=== PATIENT | female | born 1980 | race Caucasian/White ===

== ENCOUNTER 2016-07-05 14:32 | Outpatient (CLI) | payer MEDICARE, OTHER, MEDICAID ==
[~2016-07-05] VITALS: Ht 172.7 cm; Wt 103.6 kg
[~2016-07-05 14:32] MED LIST: ALBU17AE23 IH; ALBU2SYR; ALBU8.5H2 IH; AZTH250C PO; BIRTH CONTROL; BUDEPRION XL; CARB200T6 PO; CLAR-19 PO; CLNZ.5T; CLNZ.5T PO; CLON0.5T3; CLON1TAB2 PO; CRB200T; CYCL10TA9 PO; DCCL10CRX; DEPO SHOT; DICY10CA12; DOXY100C2 PO; GABA800T2; GABA800T9; GBPN400C; HYDR-3583 PO; IBP800T; KETO200T PO; LANS30CA PO; LORA10TA2; METH4TAB PO; NF-CARB200; OMEP-10 PO; ONDA-42 PO; PRCD5U PO; QTP25T PO; SEASONALE; SULF-222 PO; SULF1TAB35 PO; SULF1TAB38 PO; TRAM50TA2 PO; TRM50T; ZLP10T PO
[2016-07-05 14:50] VITALS: BP 125/79
[2016-07-05] MEDS ORDERED: MELO7.5T46 PO (15:23)
[2016-07-05] MEDS ORDERED: CARB200T6 PO (15:23)
[2016-07-05] MEDS ORDERED: MEDR150V IM (15:23)
[2016-07-05] MEDS ORDERED: ESCI10TA55 PO (15:23)
[2016-07-05] MEDS ORDERED: HYDR-3812 PO (15:23)
[2016-07-05] MEDS ORDERED: HYDR50TA76 PO (15:23)
[2016-07-05] MEDS ORDERED: TOPI100T PO (15:23)
[2016-07-05] MEDS ORDERED: MIRT30TA6 PO (15:23)
[2016-07-05] MEDS ORDERED: RANI150T90 PO (15:23)
== END 2016-07-05 15:33 | disposition home or self-care (01) ==
LOC: PREOP 14:32
PROVIDERS: ATTEND Orthopaedic Surgery
DX: Z01.818 Encounter for other preprocedural examination (principal); Z11.2 Encounter for screening for other bacterial diseases; M94.261 Chondromalacia, right knee
CPT/HCPCS: 87081

== ENCOUNTER 2016-07-12 08:48 | Day surgery (SDC) | payer MEDICARE, OTHER, MEDICAID ==
[~2016-07-12] VITALS: Ht 172.7 cm; Wt 103.6 kg
[2016-07-12 08:45] VITALS: BP 110/80
[~2016-07-12 08:48] MED LIST changes: +ESCI10TA55 PO; +HYDR-3812 PO; +HYDR50TA76 PO; +MEDR150V IM; +MELO7.5T46 PO; +MIRT30TA6 PO; +RANI150T90 PO; +TOPI100T PO
[2016-07-12] MEDS ORDERED: LACTATED RINGERS 1,000 ML IV PRN (09:05)
--- NOTE | 2016-07-12 09:12 | Progress Note-Pre Operative ---
Pre-Operative Progress Note H&P Reviewed The H&P was reviewed, patient examined and no changes noted. Date H&P Reviewed: Jul 12, 2016 Time H&P Reviewed: 09:12 Pre-Operative Diagnosis: right knee chondromalacia of the patella PONCE SANDY MD Jul 12, 2016 09:12
--- NOTE | 2016-07-12 09:14 | Progress Note-Post Operative ---
Post-Operative Progess Note Surgeon (s)/Bus Washer (s) Surgeon PONCE SANDY MD Bus Washer: Mars Genao Pre-Operative Diagnosis right knee chondromalacia of the patella Post-Operative Diagnosis right knee chondromalacia of the patella and lateral tibial plateau and partial medial meniscectomy Post-Op Procedure Note Date of Procedure: Jul 12, 2016 Name of Procedure Performed: right knee arthroscopic chondroplasty of the patella and the lateral tibial plateau and partial medial meniscectomy Description of the Procedure: see operative note Findings of the Procedure see operative note Anesthesia Type GETA Estimated blood loss (mL): minimal Packing: none Specimen(s) collected/removed none PONCE SANDY MD Jul 12, 2016 09:14
[2016-07-12] MEDS ORDERED: CLINDAMYCIN 600 MG/50 ML IVPB 50 ML IV ONE (09:15)
[2016-07-12] MEDS ORDERED: MIDAZOLAM 2 MG/2 ML (VERSED) VIAL IV ONE (09:15)
[2016-07-12] MEDS ORDERED: HYDROcodone/APAP 7.5 MG/325 MG (LORTAB, LORCET PLUS) TABLET PO PRN (09:30)
[2016-07-12] MEDS ORDERED: morphine PF (DURAMORPH) 10 MG/10 ML AMP ONE (09:35)
[2016-07-12] MEDS ORDERED: BUPIVACAINE 0.25% 30 ML (SENSORCAINE) VIAL ONE (09:35)
[2016-07-12] MEDS ORDERED: LIDOCAINE PF 2% 10 ML (XYLOCAINE) AMP ONE (09:54)
[2016-07-12] MEDS ORDERED: proPOfol 200 MG/20 ML (DIPRIVAN) VIAL IV ONE (09:54)
[2016-07-12] MEDS ORDERED: LACTATED RINGERS 1,000 ML IV ONE (09:54)
[2016-07-12] MEDS ORDERED: ONDANSETRON 4 MG/2 ML (SDV) Z0FRAN ONE (09:54)
[2016-07-12] MEDS ORDERED: fentaNYL INJECTION 100 MCG/2 ML AMP ONE ×2 (09:55→11:18)
[2016-07-12] MEDS ORDERED: MIDAZOLAM 2 MG/2 ML (VERSED) VIAL ONE (09:55)
[2016-07-12] MEDS ORDERED: SEVOFLURANE (ULTANE) 15 ML INHAL SOLN ONE ×3 (09:56→11:20)
[2016-07-12] MEDS ORDERED: ONDANSETRON 4 MG/2 ML (SDV) Z0FRAN IVP PRN (11:30)
[2016-07-12] MEDS ORDERED: MEPERIDINE (DEMEROL) INJ 50 MG/ML IVP PRN (11:30)
[2016-07-12] MEDS: morphine INJ 10 MG/ML 1ML (SYR OR VIAL) IVP PRN ×2 (11:50→11:55)
[2016-07-12 12:25] VITALS: BP 105/79
[2016-07-12 12:55] VITALS: BP 106/63
[2016-07-12 13:25] VITALS: BP 120/93
--- NOTE | 2016-07-12 13:29 | Physical Therapy Ortho Eval ---
PT Orthopedic Evaluation Type of Surgery Knee Scope right knee Prior Level of Function Current Living Status: Alone Subjective Subjective Patient in bed pre tx, agrees to PT, states she has 6/10 pain in her right knee. Patient very apprehensive and nervous about participating in PT, she states because she has a lot of pain. Entry Into Home: Level Entry Objective Objective Right knee flexion 80 degrees, extension +3 degrees. Motor Control Motor Control: Motor Control WNL ROM see above Strength NT due to recent surgery Transfer Transfers (B, C, W/C) (FIM): 4 (CGA) Gait Gait Assistive Device: Crutches 3 point gait pattern, CGA Weight Bearing Restriction: Weight Bearing/Tolerated Location Restriction: R LE Gait (FIM): 1 Distance: 40' Gait Level of Assist: 4 Summary/Comments Patient declined going up and down a step. Treatment Rendered Treatment: Therapeutic Exercises, Gait Train Exercise Instruction: Quad Sets, Heel Slides, Ankle Pumps Assessment/Goals Goal Time Frame: 1 Visit Plan Treatment Plan: Discharge PT/Family Agrees to Plan: Yes Time Time In: 1300 Time Out: 1315 Total Billed Treatment Time: 15 Billed Treatment Time 1 visit EVL 15 min Yes PT/OT Therapy GCodes Therapy Functional Limitation: Physical Therapy Test(s)/Tool used to determine: Level of Assistance Scale Functional Limitation-Current Charge Code: MOBCUR Modifier: CI Functional Limitation-Goal Charge Code: MOBGOAL Modifier: CI Functional Limitation-D/C Charge Codes: MOBDC Modifier: CI FARNAZ MARTÍNEZ PT Jul 12, 2016 13:29
[2016-07-12] MEDS ORDERED: HYDR-3816 PO ×2 (13:30→13:32)
[2016-07-12 13:50] VITALS: BP 120/93
--- NOTE | 2016-07-12 14:49 | OPERATIVE REPORT ---
PROCEDURE PHYSICIAN: PONCE SANDY DATE OF PROCEDURE: 07/12/2016 PREOPERATIVE DIAGNOSIS: Right knee chondromalacia of the patella. POSTOPERATIVE DIAGNOSIS: 1. Right knee chondromalacia of the patella. 2. Right knee chondromalacia of the lateral tibial plateau. 3. Right knee medial meniscal tear. PROCEDURE: 1. Right knee arthroscopic chondroplasty of the patella. 2. Right knee arthroscopic chondroplasty of the lateral tibial plateau. 3. Right knee arthroscopic partial medial meniscectomy. SURGEON: Danilo CENTER LINE CUTTER OPERATOR: Mars Genao who assisted throughout the procedure and closed the incisions. ANESTHESIA: General endotracheal. TOURNIQUET TIME: Was not applicable. ESTIMATED BLOOD LOSS: Minimal. DRAINS: None. COMPLICATIONS: None. POSTOPERATIVE PLAN: Routine arthroscopy protocol. The patient was transported to the recovery room, awake, in stable condition. STATEMENT OF MEDICAL NECESSITY: The patient is a 35-year-old female who had previously sustained a right patella fracture, which underwent internal fixation. She reported progressively worsening right anterior knee pain, catching, locking and swelling. She had patellofemoral crepitus. It is felt that she likely had progressive chondromalacia of the patella and due to functional impairment and failure to improve with conservative measures, the patient elected to proceed with surgical intervention. Examination under anesthesia revealed range of motion of 0/0/140, with negative Ciarra. Negative anterior posterior drawer. No varus valgus laxity and a negative pivot shift. Arthroscopic findings demonstrated diffuse grade 2 chondral flaps over the central portion of the patella in a 20 x 20 area. The trochlea demonstrated no gross chondral abnormalities. The medial and lateral gutters were clear. The lateral compartment are grade 2 chondral flap centrally over tibial plateau in a 5 x 5 area. No meniscal pathology was noted. The ACL and PCL were intact. The medial compartment demonstrated a flap tear of the anterior horn of the medial meniscus involving approximately 20% of the anterior horn. No chondral pathology was noted. PROCEDURE: After risks and benefits of procedure were discussed and questions were answered an informed consent was signed and placed on chart. The operative site was confirmed in the preoperative holding and initialed by the surgeon. The patient was then transported to the operating room and after adequate levels of general endotracheal anesthetic were obtained, a timeout was called confirming the operative site. Examination under anesthesia was performed with the above findings noted. The right lower extremity was prepped and draped in the usual sterile fashion. The knee joint was injected 60 mL of fluid and a standard inferolateral portal was placed. Under direct visualization an inferior medial port was created. The menisci cruciates were carefully probed with the above findings noted. The unstable chondral flaps on the patella were debrided with a shaver back to a stable edge. The scope was redirected into the lateral compartment where the unstable chondral flaps and tibial plateau were debrided with shaved back to a stable edge. The scope was redirected into the medial compartment where the anterior horn of the medial meniscus was debrided with a shaver, removing approximately 20% of the anterior horn. This was carefully probed with no further tearing or instability noted. The knee was copiously irrigated. Port sites closed with 3-0 nylon in simple interrupted fashion. The knee was injected with Duramorph. Port sites were infiltrated with plain Marcaine. A soft dressing was applied and the patient was then transported to the recovery room, awake, in stable condition. Job ID: [id number] Dictated Date: 07/12/2016 11:35:20 Beauty Culturist Apprentice Date: 07/12/2016 14:40:44 / alejandra
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
--- OUTSIDE RECORDS SUMMARY | 2016-08-13 16:40 | XMS REPORT ---
Author Author CAROLYN MADDOX [facility] eClinicalWorks Address Unknown Phone Unavailable Care Team Providers Care Group Fitness Instructor Name Role Phone CAROLYN MADDOX CP Unavailable [...] at health care facility V70.0 Active Medications No Known Medications Results No Known Results Summary Purpose eClinicalWorks Submission
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
--- OUTSIDE RECORDS SUMMARY | 2016-08-13 16:40 | XMS REPORT ---
Author Author CAROLYN MADDOX Organization eClinicalWorks Address Unknown Phone Unavailable Care Team Providers Care Translator Name Role Phone CAROLYN MADDOX CP Unavailable [...] Date End Date Status Dosage Clonazepam NDC [address]-75 0.5 MG 1 TAB orally 4 times [...]
--- OUTSIDE RECORDS SUMMARY | 2016-08-13 16:40 | XMS REPORT | Continuity of Care Document ---
Author Author Formerly [facility] Address Unknown Phone Unavailable Allergies Active Description Code Type Severity Reaction Onset Reported/Identified Relationship to Patient Clinical Status Yes Cipro Drug Allergy N/A N/A 08/20/2008 Yes Penicillins Drug Allergy N/A N/A 08/20/2008 Yes Cipro Drug Allergy 08/20/2008 Yes Penicillins Drug Allergy 08/20/2008 Yes Lamictal Drug Allergy N/A N/A 03/28/2011 Yes Lamictal Drug Allergy 03/28/2011 Yes ciprofloxacin [id number] Drug Allergy Mild N/A 07/05/2016 Yes Penicillins [id number] Drug Allergy Mild N/A 07/05/2016 Medications Problems Date Dx Coded Attending Type Code Diagnosis Diagnosed By 10/23/2007 ERIN ARAGON DO 293.83 OR ORG ANX SYN 10/23/2007 ERIN ARAGON DO F 293.84 OR ORG ANX SYN 10/23/2007 ERIN ARAGON DO 293.83 OR ORG ANX SYN 10/23/2007 ERIN ARAGON DO 293.84 OR ORG ANX SYN 10/23/2007 ERIN ARAGON DO F 293.83 OR ORG ANX SYN 10/23/2007 ERIN ARAGON DO 293.84 OR ORG ANX SYN 10/23/2007 ERIN ARAGON DO 293.83 OR ORG ANX SYN 10/23/2007 ERIN ARAGON DO 293.84 OR ORG ANX SYN 10/23/2007 VARSHA CAFETERIA FOOD SERVER, CAROLYN S 293.83 OR ORG ANX SYN 10/23/2007 VARSHA CAFETERIA FOOD SERVER, CAROLYN S 293.84 OR ORG ANX SYN 10/23/2007 VARSHA CAFETERIA FOOD SERVER, CAROLYN S 293.83 OR ORG ANX SYN 10/23/2007 VARSHA CAFETERIA FOOD SERVER, CAROLYN S 293.84 OR ORG ANX SYN 10/23/2007 293.83 OR ORG ANX SYN 10/23/2007 293.84 OR ORG ANX SYN 10/23/2007 293.83 OR ORG ANX SYN 10/23/2007 293.84 OR ORG ANX SYN 10/23/2007 ASHER MADDOX APRNNDA S 293.83 OR ORG ANX SYN 10/23/2007 VARSHA KELLY, CAROLYN S 293.84 OR ORG ANX SYN 10/23/2007 WERDER DO, ERIN F 293.83 OR ORG ANX SYN 10/23/2007 WERDER DO, ERIN F 293.84 OR ORG ANX SYN 10/23/2007 JARRET RIVERA PSYD ANN L 293.83 OR ORG ANX SYN 10/23/2007 NICOLE HUI CHIDI L 293.84 OR ORG ANX SYN 10/23/2007 JARRET RIVERA PSYD ANN L 293.83 OR ORG ANX SYN 10/23/2007 JARRET RIVERA PSYD ANN L 293.84 OR ORG ANX SYN 10/23/2007 ASHER MADDOX APRNNDA S 293.83 OR ORG ANX SYN 10/23/2007 ASHER MADDOX APRNNDA S 293.84 OR ORG ANX SYN 10/23/2007 VENEGAS DO, SAUL K 293.83 OR ORG ANX SYN 10/23/2007 VENEGAS DO, SAUL K 293.84 OR ORG ANX SYN 10/23/2007 JARRET RIVERA PSYD ANN L 293.83 OR ORG ANX SYN 10/23/2007 JARRET RIVERA PSYD ANN L 293.84 OR ORG ANX SYN 10/23/2007 JARRET RIVERA PSYD ANN L 293.83 OR ORG ANX SYN 10/23/2007 JARRET RIVERA PSYD ANN L 293.84 OR ORG ANX SYN 10/23/2007 VENEGAS DO, SAUL K 293.83 OR ORG ANX SYN 10/23/2007 VENEGAS DO, SAUL K 293.84 OR ORG ANX SYN 10/23/2007 DELORES CHAVEZ MD 293.83 OR ORG ANX SYN 10/23/2007 DELORES CHAVEZ MD 293.84 OR ORG ANX SYN 10/23/2007 JARRET RIVERA PSYD ANN L 293.83 OR ORG ANX SYN 10/23/2007 JARRET RIVERA PSYD ANN L 293.84 OR ORG ANX SYN 10/23/2007 JARRET RIVERA PSYD ANN L 293.83 OR ORG ANX SYN 10/23/2007 LOPEZEARY KORINA, CHIDI L 293.84 OR ORG ANX SYN 10/23/2007 MCCTANYAEARY PSYD, CHIDI L 293.83 OR ORG ANX SYN 10/23/2007 MCCLEEARY PSYD, CHIDI L 293.84 OR ORG ANX SYN 10/23/2007 MCCLEEARY PSYD, CHIDI L 293.83 OR ORG ANX SYN 10/23/2007 MCCLEEARY PSYD, CHIDI L 293.84 OR ORG ANX SYN 10/23/2007 MCCLEEARY PSYD, CHIDI L 293.83 OR ORG ANX SYN 10/23/2007 MCCLEEARY MANJULAYD, CHIDI L 293.84 OR ORG ANX SYN 11/20/2007 ERIN ARAGON DO 296.32 MAJOR DEPRESSIVE AFFECTIVE DISORDER RECURRENT EPISODE MODERATE DEGREE 11/20/2007 ERIN ARAGON DO 296.32 MAJOR DEPRESSIVE AFFECTIVE DISORDER RECURRENT EPISODE MODERATE DEGREE 11/20/2007 ERIN ARAGON DO F 296.32 MAJOR DEPRESSIVE AFFECTIVE DISORDER RECURRENT EPISODE MODERATE DEGREE 11/20/2007 ERIN ARAGON DO 296.32 MAJOR DEPRESSIVE AFFECTIVE DISORDER RECURRENT EPISODE MODERATE DEGREE 11/20/2007 CAROLYN MADDOX APRN S 296.32 MAJOR DEPRESSIVE AFFECTIVE DISORDER RECURRENT EPISODE MODERATE DEGREE 11/20/2007 CAROLYN MADDOX APRN S 296.32 MAJOR DEPRESSIVE AFFECTIVE DISORDER RECURRENT EPISODE MODERATE DEGREE 11/20/2007 296.32 MAJOR DEPRESSIVE AFFECTIVE DISORDER RECURRENT EPISODE MODERATE DEGREE 11/20/2007 296.32 MAJOR DEPRESSIVE AFFECTIVE DISORDER RECURRENT EPISODE MODERATE DEGREE 11/20/2007 CAROLYN MADDOX APRN S 296.32 MAJOR DEPRESSIVE AFFECTIVE DISORDER RECURRENT EPISODE MODERATE DEGREE 11/20/2007 ERIN ARAGON DO 296.32 MAJOR DEPRESSIVE AFFECTIVE DISORDER RECURRENT EPISODE MODERATE DEGREE 11/20/2007 JARRET RIVERA PSYD ANN L 296.32 MAJOR DEPRESSIVE AFFECTIVE DISORDER RECURRENT EPISODE MODERATE DEGREE 11/20/2007 JARRET RIVERA PSYD ANN L 296.32 MAJOR DEPRESSIVE AFFECTIVE DISORDER RECURRENT EPISODE MODERATE DEGREE 11/20/2007 XI MADDOX APRNA S 296.32 MAJOR DEPRESSIVE AFFECTIVE DISORDER RECURRENT EPISODE MODERATE DEGREE 11/20/2007 SAUL VENEGAS DO 296.32 MAJOR DEPRESSIVE AFFECTIVE DISORDER RECURRENT EPISODE MODERATE DEGREE 11/20/2007 JARRET RIVERA PSYD ANN L 296.32 MAJOR DEPRESSIVE AFFECTIVE DISORDER RECURRENT EPISODE MODERATE DEGREE 11/20/2007 NICOLE HUI, CHIDI L 296.32 MAJOR DEPRESSIVE AFFECTIVE DISORDER RECURRENT EPISODE MODERATE DEGREE 11/20/2007 SAUL VENEGAS DO 296.32 MAJOR DEPRESSIVE AFFECTIVE DISORDER RECURRENT EPISODE MODERATE DEGREE 11/20/2007 DELORES CHAVEZ MD 296.32 MAJOR DEPRESSIVE AFFECTIVE DISORDER RECURRENT EPISODE MODERATE DEGREE 11/20/2007 NICOLE HUI, CHIDI L 296.32 MAJOR DEPRESSIVE AFFECTIVE DISORDER RECURRENT EPISODE MODERATE DEGREE 11/20/2007 NICOLE HUI, CHIDI L 296.32 MAJOR DEPRESSIVE AFFECTIVE DISORDER RECURRENT EPISODE MODERATE DEGREE 11/20/2007 NICOLE HUI, CHIDI L 296.32 MAJOR DEPRESSIVE AFFECTIVE DISORDER RECURRENT EPISODE MODERATE DEGREE 11/20/2007 NICOLE HUI, CHIDI L 296.32 MAJOR DEPRESSIVE AFFECTIVE DISORDER RECURRENT EPISODE MODERATE DEGREE 11/20/2007 NICOLE HUI, CHIDI L 296.32 MAJOR DEPRESSIVE AFFECTIVE DISORDER RECURRENT EPISODE MODERATE DEGREE 12/11/2007 ERIN ARAGON DO F 924.9 BRUISE/CONTUSION UNSPECIFIED SITE 12/11/2007 ERIN ARAGON DO F 924.9 BRUISE/CONTUSION UNSPECIFIED SITE 12/11/2007 ERIN ARAGON DO F 924.9 BRUISE/CONTUSION UNSPECIFIED SITE 12/11/2007 ERIN ARAGON DO F 924.9 BRUISE/CONTUSION UNSPECIFIED SITE 12/11/2007 CAROLYN MADDOX APRN S 924.9 Bruise/contusion Unspecified Site 12/11/2007 CAROLYN MADDOX APRN S 924.9 Bruise/contusion Unspecified Site 12/11/2007 924.9 Bruise/contusion Unspecified Site 12/11/2007 924.9 Bruise/contusion Unspecified Site 12/11/2007 ASHER MADDOX APRNNDA S 924.9 Bruise/contusion Unspecified Site 12/11/2007 ERIN ARAGON DO F 924.9 Bruise/contusion Unspecified Site 12/11/2007 JARRET RIVERA PSYD ANN L 924.9 Bruise/contusion Unspecified Site 12/11/2007 JARRET RIVERA PSYD ANN L 924.9 Bruise/contusion Unspecified Site 12/11/2007 CAROLYN MADDOX APRN S 924.9 Bruise/contusion Unspecified Site 12/11/2007 VENEGAS DOSAUL K 924.9 Bruise/contusion Unspecified Site 12/11/2007 MCCLELIDYA PSREHANA, CHIDI L 924.9 Bruise/contusion Unspecified Site 12/11/2007 MCCLEEARMarcelo HUI, CHIDI L 924.9 Bruise/contusion Unspecified Site 12/11/2007 VENEGAS DOSAUL K 924.9 Bruise/contusion Unspecified Site 12/11/2007 DELORES CHAVEZ MD 924.9 Bruise/contusion Unspecified Site 12/11/2007 MCCBERNADETTE HUI, CHIDI L 924.9 Bruise/contusion Unspecified Site 12/11/2007 MCCLEEARY PSYD, CHIDI L 924.9 Bruise/contusion Unspecified Site 12/11/2007 MCCBERNADETTE HUI, CHIDI L 924.9 Bruise/contusion Unspecified Site 12/11/2007 MCCBERNADETTE HUI, CHIDI L 924.9 Bruise/contusion Unspecified Site 12/11/2007 MCCLEEARY PSREHANA, CHIDI L 924.9 Bruise/contusion Unspecified Site 12/23/2007 ERIN ARAGON DO F 309.81 AN PTSD 12/23/2007 ERIN ARAGON DO F 309.81 AN PTSD 12/23/2007 ERIN ARAGON DO F 309.81 AN PTSD 12/23/2007 ERIN ARAGON DO F 309.81 AN PTSD 12/23/2007 CAROLYN MADDOX APRN S 309.81 AN PTSD 12/23/2007 CAROLYN MADDOX APRN S 309.81 AN PTSD 12/23/2007 309.81 AN PTSD 12/23/2007 309.81 AN PTSD 12/23/2007 CAROLYN MADDOX APRN S 309.81 AN PTSD 12/23/2007 ERIN ARAGON DO F 309.81 AN PTSD 12/23/2007 JARRET RIVERA PSYD ANN L 309.81 AN PTSD 12/23/2007 JARRET RIVERA PSYD ANN L 309.81 AN PTSD 12/23/2007 VARSHA CAFETERIA FOOD SERVER, CAROLYN S 309.81 AN PTSD 12/23/2007 SAUL VENEGAS DO K 309.81 AN PTSD 12/23/2007 JARRET RIVERA PSYD ANN L 309.81 AN PTSD 12/23/2007 JARRET RIVERA PSYD ANN L 309.81 AN PTSD 12/23/2007 SAUL VENEGAS DO K 309.81 AN PTSD 12/23/2007 DELORES CHAVEZ MD 309.81 AN PTSD 12/23/2007 JARRET RIVERA PSYD ANN L 309.81 AN PTSD 12/23/2007 JARRET RIVERA PSYD ANN L 309.81 AN PTSD 12/23/2007 JARRET RIVERA PSYD ANN L 309.81 AN PTSD 12/23/2007 JARRET RIVERA PSYD ANN L 309.81 AN PTSD 12/23/2007 JARRET RIVERA PSYD ANN L 309.81 AN PTSD 01/08/2008 ERIN ARAGON DO F 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 SYNDROME 01/08/2008 ERIN ARAGON DO F 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 SYNDROME 01/08/2008 ERIN ARAGON DO F 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 SYNDROME 01/08/2008 ELINA ARAGON DOEN F 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 SYNDROME 01/08/2008 CAROLYN MADDOX APRN S 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 SYNDROME 01/08/2008 CAROLYN MADDOX APRN S 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 SYNDROME 01/08/2008 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 SYNDROME 01/08/2008 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 SYNDROME 01/08/2008 CAROLYN MADDOX APRN S 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 SYNDROME 01/08/2008 ERIN ARAGON DO F 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 SYNDROME 01/08/2008 JARRET RIVERA PSYD ANN L 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 SYNDROME 01/08/2008 JARRET RIVERA PSYD ANN L 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 SYNDROME 01/08/2008 CAROLYN MADDOX APRN S 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 SYNDROME 01/08/2008 SAUL VENEGAS DO K 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 SYNDROME 01/08/2008 MCCLEEARY PSYD, CHIDI L 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 SYNDROME 01/08/2008 MCCLEEARY KORINA, CHIDI L 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 SYNDROME 01/08/2008 SAUL VENEGAS DO 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 SYNDROME 01/08/2008 DELORES CHAVEZ MD 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 SYNDROME 01/08/2008 MCCLEEARMarcelo HUI, CHIDI L 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 SYNDROME 01/08/2008 MCCLEEARY MANJULAYD, CHIDI L 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 SYNDROME 01/08/2008 MCCLEEARY MANJULAYD, CHIDI L 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 SYNDROME 01/08/2008 MCCLEEARY MANJULAYD, CHIDI L 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 SYNDROME 01/08/2008 MCCLEEARY MANJULAYD, CHIDI L 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 SYNDROME 01/24/2008 ERIN ARAGON DO F 307.47 SI DYSSOMNIA NOS 01/24/2008 ERIN ARAGON DO F 307.47 SI DYSSOMNIA NOS 01/24/2008 ERIN ARAGON DO F 307.47 SI DYSSOMNIA NOS 01/24/2008 ERIN ARAGON DO F 307.47 SI DYSSOMNIA NOS 01/24/2008 ASHER MADDOX APRNNDA S 307.47 SI DYSSOMNIA NOS 01/24/2008 ASHER MADDOX APRNNDA S 307.47 SI DYSSOMNIA NOS 01/24/2008 307.47 SI DYSSOMNIA NOS 01/24/2008 307.47 SI DYSSOMNIA NOS 01/24/2008 VARSHA KELLY CAROLYN S 307.47 SI DYSSOMNIA NOS 01/24/2008 ERIN ARAGON DO F 307.47 SI DYSSOMNIA NOS 01/24/2008 LOPEZEARY KORINA, CHIDI L 307.47 SI DYSSOMNIA NOS 01/24/2008 KIZZYLEEARY KORINA, CHIDI L 307.47 SI DYSSOMNIA NOS 01/24/2008 ASHER MADDOX APRNNDA S 307.47 SI DYSSOMNIA NOS 01/24/2008 SAUL VENEGAS DO 307.47 SI DYSSOMNIA NOS 01/24/2008 JARRET RIVERA PSYD ANN L 307.47 SI DYSSOMNIA NOS 01/24/2008 JARRET RIVERA PSYD ANN L 307.47 SI DYSSOMNIA NOS 01/24/2008 SAUL VENEGAS DO 307.47 SI DYSSOMNIA NOS 01/24/2008 DELORES CHAVEZ MD 307.47 SI DYSSOMNIA NOS 01/24/2008 JARRET RIVERA PSYD ANN L 307.47 SI DYSSOMNIA NOS 01/24/2008 JARRET RIVERA PSYD ANN L 307.47 SI DYSSOMNIA NOS 01/24/2008 JARRET RIVERA PSYD ANN L 307.47 SI DYSSOMNIA NOS 01/24/2008 JARRET RIVERA PSYD ANN L 307.47 SI DYSSOMNIA NOS 01/24/2008 JARRET RIVERA PSYD ANN L 307.47 SI DYSSOMNIA NOS 02/07/2008 WERDENTON DO ERIN F 356.9 UNSPECIFIED IDIOPATHIC PERIPHERAL NEUROPATHY 02/07/2008 WERDENTON DO ERIN F 356.9 UNSPECIFIED IDIOPATHIC PERIPHERAL NEUROPATHY 02/07/2008 WERDER DO ERIN F 356.9 UNSPECIFIED IDIOPATHIC PERIPHERAL NEUROPATHY 02/07/2008 WERDER DO ERIN F 356.9 UNSPECIFIED IDIOPATHIC PERIPHERAL NEUROPATHY 02/07/2008 XI MADDOX APRNA S 356.9 UNSPECIFIED IDIOPATHIC PERIPHERAL NEUROPATHY 02/07/2008 ASHER MADDOX APRNNDA S 356.9 UNSPECIFIED IDIOPATHIC PERIPHERAL NEUROPATHY 02/07/2008 356.9 UNSPECIFIED IDIOPATHIC PERIPHERAL NEUROPATHY 02/07/2008 356.9 UNSPECIFIED IDIOPATHIC PERIPHERAL NEUROPATHY 02/07/2008 XI MADDOX APRNA S 356.9 UNSPECIFIED IDIOPATHIC PERIPHERAL NEUROPATHY 02/07/2008 WERLOPEZ ERIN F 356.9 UNSPECIFIED IDIOPATHIC PERIPHERAL NEUROPATHY 02/07/2008 JARRET RIVERA PSYD ANN L 356.9 UNSPECIFIED IDIOPATHIC PERIPHERAL NEUROPATHY 02/07/2008 JARRET RIVERA PSYD ANN L 356.9 UNSPECIFIED IDIOPATHIC PERIPHERAL NEUROPATHY 02/07/2008 XI MADDOX APRNA S 356.9 UNSPECIFIED IDIOPATHIC PERIPHERAL NEUROPATHY 02/07/2008 SAUL VENEGAS DO K 356.9 UNSPECIFIED IDIOPATHIC PERIPHERAL NEUROPATHY 02/07/2008 JARRET RIVERA PSYD ANN L 356.9 UNSPECIFIED IDIOPATHIC PERIPHERAL NEUROPATHY 02/07/2008 JARRET RIVERA PSYD ANN L 356.9 UNSPECIFIED IDIOPATHIC PERIPHERAL NEUROPATHY 02/07/2008 SAUL VENEGAS DO 356.9 UNSPECIFIED IDIOPATHIC PERIPHERAL NEUROPATHY 02/07/2008 DELORES CHAVEZ MD 356.9 UNSPECIFIED IDIOPATHIC PERIPHERAL NEUROPATHY 02/07/2008 JARRET RIVERA PSYD ANN L 356.9 UNSPECIFIED IDIOPATHIC PERIPHERAL NEUROPATHY 02/07/2008 JARRET RIVERA PSYD ANN L 356.9 UNSPECIFIED IDIOPATHIC PERIPHERAL NEUROPATHY 02/07/2008 NICOLE HUI, CHIDI L 356.9 UNSPECIFIED IDIOPATHIC PERIPHERAL NEUROPATHY 02/07/2008 JARRET RIVERA PSYD ANN L 356.9 UNSPECIFIED IDIOPATHIC PERIPHERAL NEUROPATHY 02/07/2008 JARRET RIVERA PSYD ANN L 356.9 UNSPECIFIED IDIOPATHIC PERIPHERAL NEUROPATHY 06/25/2008 ERIN ARAGON DO F 300.00 AN ANXIETY UNSPEC 06/25/2008 ERIN ARAGON DO F 300.4 DYSTHYMIC DIS 06/25/2008 ERIN ARAGON DO F 300.00 AN ANXIETY UNSPEC 06/25/2008 ERIN ARAGON DO F 300.4 DYSTHYMIC DIS 06/25/2008 ERIN ARAGON DO F 300.00 AN ANXIETY UNSPEC 06/25/2008 ERIN ARAGON DO F 300.4 DYSTHYMIC DIS 06/25/2008 ERIN ARAGON DO F 300.00 AN ANXIETY UNSPEC 06/25/2008 ERIN ARAGON DO F 300.4 DYSTHYMIC DIS 06/25/2008 CAROLYN MADDOX APRN S 300.00 AN ANXIETY UNSPEC 06/25/2008 XI MADDOX APRNA S 300.4 DYSTHYMIC DIS 06/25/2008 XI MADDOX APRNA S 300.00 AN ANXIETY UNSPEC 06/25/2008 XI MADDOX APRNA S 300.4 DYSTHYMIC DIS 06/25/2008 300.00 AN ANXIETY UNSPEC 06/25/2008 300.4 DYSTHYMIC DIS 06/25/2008 300.00 AN ANXIETY UNSPEC 06/25/2008 300.4 DYSTHYMIC DIS 06/25/2008 XI MADDOX APRNA S 300.00 AN ANXIETY UNSPEC 06/25/2008 VARSHA CAFETERIA FOOD SERVER, CAROLYN S 300.4 DYSTHYMIC DIS 06/25/2008 WERDER DO, ERIN F 300.00 AN ANXIETY UNSPEC 06/25/2008 WERDER DO, ERIN F 300.4 DYSTHYMIC DIS 06/25/2008 JARRET RIVERA PSYD ANN L 300.00 AN ANXIETY UNSPEC 06/25/2008 JARRET RIVERA PSYD ANN L 300.4 DYSTHYMIC DIS 06/25/2008 JARRET RIVERA PSYD ANN L 300.00 AN ANXIETY UNSPEC 06/25/2008 JARRET RIVERA PSYD ANN L 300.4 DYSTHYMIC DIS 06/25/2008 XI MADDOX APRNA S 300.00 AN ANXIETY UNSPEC 06/25/2008 XI MADDOX APRNA S 300.4 DYSTHYMIC DIS 06/25/2008 VENEGAS DO SAUL K 300.00 AN ANXIETY UNSPEC 06/25/2008 VENEGAS DO SAUL K 300.4 DYSTHYMIC DIS 06/25/2008 JARRET RIVERA PSYD ANN L 300.00 AN ANXIETY UNSPEC 06/25/2008 JARRET RIVERA PSYD ANN L 300.4 DYSTHYMIC DIS 06/25/2008 JARRET RIVERA PSYD ANN L 300.00 AN ANXIETY UNSPEC 06/25/2008 JARRET RIVERA PSYD ANN L 300.4 DYSTHYMIC DIS 06/25/2008 VENEGAS DO SAUL K 300.00 AN ANXIETY UNSPEC 06/25/2008 VENEGAS DO SAUL K 300.4 DYSTHYMIC DIS 06/25/2008 DELORES CHAVEZ MD 300.00 AN ANXIETY UNSPEC 06/25/2008 DELORES CHAVEZ MD 300.4 DYSTHYMIC DIS 06/25/2008 JARRET RIVERA PSYD ANN L 300.00 AN ANXIETY UNSPEC 06/25/2008 JARRET RIVERA PSYD ANN L 300.4 DYSTHYMIC DIS 06/25/2008 JARRET RIVERA PSYD ANN L 300.00 AN ANXIETY UNSPEC 06/25/2008 JARRET RIVERA PSYD ANN L 300.4 DYSTHYMIC DIS 06/25/2008 JARRET RIVERA PSYD ANN L 300.00 AN ANXIETY UNSPEC 06/25/2008 JARRET RIVERA PSYD ANN L 300.4 DYSTHYMIC DIS 06/25/2008 JARRET RIVERA PSYD L 300.00 AN ANXIETY UNSPEC 06/25/2008 JARRET RIVERA PSYD L 300.4 DYSTHYMIC DIS 06/25/2008 JARRET RIVERA PSYD L 300.00 AN ANXIETY UNSPEC 06/25/2008 JARRET RIVERA PSYD L 300.4 DYSTHYMIC DIS 07/01/2008 WERDENTON DO ERIN F 296.3 MO DEPRESS RECURR 07/01/2008 WERDENTON DO ERIN F 296.3 MO DEPRESS RECURR 07/01/2008 WERDER DOELINAEN F 296.3 MO DEPRESS RECURR 07/01/2008 WERDER DO ERIN F 296.3 MO DEPRESS RECURR 07/01/2008 XI MADDOX APRNA S 296.3 MO DEPRESS RECURR 07/01/2008 CAROLYN MADDOX APRN S 296.3 MO DEPRESS RECURR 07/01/2008 296.3 MO DEPRESS RECURR 07/01/2008 296.3 MO DEPRESS RECURR 07/01/2008 CAROLYN MADDOX APRN S 296.3 MO DEPRESS RECURR 07/01/2008 ERIN ARAGON DO F 296.3 MO DEPRESS RECURR 07/01/2008 JARRET RIVERA PSYD L 296.3 MO DEPRESS RECURR 07/01/2008 JARRET RIVERA PSYD L 296.3 MO DEPRESS RECURR 07/01/2008 CAROLYN MADDOX APRN S 296.3 MO DEPRESS RECURR 07/01/2008 RUBI DO, SAUL K 296.3 MO DEPRESS RECURR 07/01/2008 JARRET RIVERA PSYD L 296.3 MO DEPRESS RECURR 07/01/2008 JARRET RIVERA PSYD L 296.3 MO DEPRESS RECURR 07/01/2008 RUBI DO, SAUL K 296.3 MO DEPRESS RECURR 07/01/2008 DELORES CHAVEZ MD 296.3 MO DEPRESS RECURR 07/01/2008 JARRET RIVERA PSYD ANN L 296.3 MO DEPRESS RECURR 07/01/2008 JARRET RIVERA PSYD ANN L 296.3 MO DEPRESS RECURR 07/01/2008 JARRET RIVERA PSYD ANN L 296.3 MO DEPRESS RECURR 07/01/2008 JARRET RIVERA PSYD ANN L 296.3 MO DEPRESS RECURR 5TH 07/01/2008 AJRRET RIVERA PSYD ANN L 296.3 MO DEPRESS RECURR 5TH 07/31/2008 ERIN ARAGON DO 995.20 UNSPECIFIED ADVERSE EFFECT OF UNSPECIFIED DRUG MEDICINAL AND BIOLOGICAL SUBSTANCE 07/31/2008 MARGO GARCIA ERIN F E939.9 UNSPECIFIED 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 07/31/2008 ERIN ARAGON DO F 995.20 UNSPECIFIED ADVERSE EFFECT OF UNSPECIFIED DRUG MEDICINAL AND BIOLOGICAL SUBSTANCE 07/31/2008 MARGO GARCIA ERIN F E939.9 UNSPECIFIED 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 07/31/2008 ERIN ARAGON DO F 995.20 UNSPECIFIED ADVERSE EFFECT OF UNSPECIFIED DRUG MEDICINAL AND BIOLOGICAL SUBSTANCE 07/31/2008 MARGO GARCIA ERIN F E939.9 UNSPECIFIED 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 07/31/2008 ERIN ARAGON DO F 995.20 UNSPECIFIED ADVERSE EFFECT OF UNSPECIFIED DRUG MEDICINAL AND BIOLOGICAL SUBSTANCE 07/31/2008 ERIN ARAGON DO E939.9 UNSPECIFIED 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 07/31/2008 CAROLYN MADDOX APRN S 995.20 UNSPECIFIED ADVERSE EFFECT OF UNSPECIFIED DRUG MEDICINAL AND BIOLOGICAL SUBSTANCE 07/31/2008 CAROLYN MADDOX APRN S E939.9 UNSPECIFIED 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 07/31/2008 CAROLYN MADDOX APRN S 995.20 UNSPECIFIED ADVERSE EFFECT OF UNSPECIFIED DRUG MEDICINAL AND BIOLOGICAL SUBSTANCE 07/31/2008 CAROLYN MADDOX APRN S E939.9 UNSPECIFIED 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 07/31/2008 995.20 UNSPECIFIED ADVERSE EFFECT OF UNSPECIFIED DRUG MEDICINAL AND BIOLOGICAL SUBSTANCE 07/31/2008 E939.9 UNSPECIFIED 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 07/31/2008 995.20 UNSPECIFIED ADVERSE EFFECT OF UNSPECIFIED DRUG MEDICINAL AND BIOLOGICAL SUBSTANCE 07/31/2008 E939.9 UNSPECIFIED 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 07/31/2008 CAROLYN MADDOX APRN S 995.20 UNSPECIFIED ADVERSE EFFECT OF UNSPECIFIED DRUG MEDICINAL AND BIOLOGICAL SUBSTANCE 07/31/2008 VARSHA CAFETERIA FOOD SERVER, CAROLYN S E939.9 UNSPECIFIED 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 07/31/2008 MARGO DOELINAEN F 995.20 UNSPECIFIED ADVERSE EFFECT OF UNSPECIFIED DRUG MEDICINAL AND BIOLOGICAL SUBSTANCE 07/31/2008 MARGO DOELINAEN F E939.9 UNSPECIFIED 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 07/31/2008 JARRET RIVERA PSYD ANN L 995.20 UNSPECIFIED ADVERSE EFFECT OF UNSPECIFIED DRUG MEDICINAL AND BIOLOGICAL SUBSTANCE 07/31/2008 JARRET RIVERA PSYD ANN L E939.9 UNSPECIFIED 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 07/31/2008 JARRET RIVERA PSYD ANN L 995.20 UNSPECIFIED ADVERSE EFFECT OF UNSPECIFIED DRUG MEDICINAL AND BIOLOGICAL SUBSTANCE 07/31/2008 JARRET RIVERA PSYD L E939.9 UNSPECIFIED 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 07/31/2008 CAROLYN MADDOX APRN S 995.20 UNSPECIFIED ADVERSE EFFECT OF UNSPECIFIED DRUG MEDICINAL AND BIOLOGICAL SUBSTANCE 07/31/2008 CAROLYN MADDOX APRN S E939.9 UNSPECIFIED 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 07/31/2008 SAUL VENEGAS DO K 995.20 UNSPECIFIED ADVERSE EFFECT OF UNSPECIFIED DRUG MEDICINAL AND BIOLOGICAL SUBSTANCE 07/31/2008 ROBERT VENEGAS DOA K E939.9 UNSPECIFIED 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 07/31/2008 JARRET RIVERA PSYD ANN L 995.20 UNSPECIFIED ADVERSE EFFECT OF UNSPECIFIED DRUG MEDICINAL AND BIOLOGICAL SUBSTANCE 07/31/2008 JARRET RIVERA PSYD ANN L E939.9 UNSPECIFIED 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 07/31/2008 JARRET RIVERA PSYD ANN L 995.20 UNSPECIFIED ADVERSE EFFECT OF UNSPECIFIED DRUG MEDICINAL AND BIOLOGICAL SUBSTANCE 07/31/2008 JARRET RIVERA PSYD ANN L E939.9 UNSPECIFIED 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 07/31/2008 RUBI GARCIA SAUL K 995.20 UNSPECIFIED ADVERSE EFFECT OF UNSPECIFIED DRUG MEDICINAL AND BIOLOGICAL SUBSTANCE 07/31/2008 ROBERT VENEGAS DOA K E939.9 UNSPECIFIED 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 07/31/2008 SCOTT HOPSON, DELORES 995.20 UNSPECIFIED ADVERSE EFFECT OF UNSPECIFIED DRUG MEDICINAL AND BIOLOGICAL SUBSTANCE 07/31/2008 SCOTT HOPSON, DELORES E939.9 UNSPECIFIED 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 07/31/2008 JARRET RIVERA PSYD ANN L 995.20 UNSPECIFIED ADVERSE EFFECT OF UNSPECIFIED DRUG MEDICINAL AND BIOLOGICAL SUBSTANCE 07/31/2008 JARRET RIVERA PSYD ANN L E939.9 UNSPECIFIED 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 07/31/2008 JARRET RIVERA PSYD ANN L 995.20 UNSPECIFIED ADVERSE EFFECT OF UNSPECIFIED DRUG MEDICINAL AND BIOLOGICAL SUBSTANCE 07/31/2008 JARRET RIVERA PSYD ANN L E939.9 UNSPECIFIED 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 07/31/2008 JARRET RIVERA PSYD ANN L 995.20 UNSPECIFIED ADVERSE EFFECT OF UNSPECIFIED DRUG MEDICINAL AND BIOLOGICAL SUBSTANCE 07/31/2008 JARRET RIVERA PSYD ANN L E939.9 UNSPECIFIED 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 07/31/2008 JARRET RIVERA PSYD ANN L 995.20 UNSPECIFIED ADVERSE EFFECT OF UNSPECIFIED DRUG MEDICINAL AND BIOLOGICAL SUBSTANCE 07/31/2008 JARRET RIVERA PSYD ANN L E939.9 UNSPECIFIED 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 07/31/2008 JARRET RIVERA PSYD ANN L 995.20 UNSPECIFIED ADVERSE EFFECT OF UNSPECIFIED DRUG MEDICINAL AND BIOLOGICAL SUBSTANCE 07/31/2008 JARRET RIVERA PSYD ANN L E939.9 UNSPECIFIED 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 08/20/2008 ERIN ARAGON DO F 477.0 Allergic Rhinitis Due To Pollen 08/20/2008 ERIN ARAGON DO F 719.46 joint pain, localized in the knee 08/20/2008 ERIN ARAGON DO F 477.0 Allergic Rhinitis Due To Pollen 08/20/2008 ERIN ARAGON DO F 719.46 joint pain, localized in the knee 08/20/2008 ERIN ARAGON DO F 477.0 Allergic Rhinitis Due To Pollen 08/20/2008 ERIN ARAGON DO F 719.46 joint pain, localized in the knee 08/20/2008 ERIN ARAGON DO F 477.0 Allergic Rhinitis Due To Pollen 08/20/2008 ERIN ARAGON DO F 719.46 joint pain, localized in the knee 08/20/2008 VARSHA CAFET[employer]IA [employer]OD SERVER, CAROLYN S 477.0 Allergic Rhinitis Due To Pollen 08/20/2008 VARSHA [employer] SERVER, CAROLYN S 719.46 Joint Pain, Localized In The Knee 08/20/2008 VARSHA [employer] SERVER, CAROLYN S 477.0 Allergic Rhinitis Due To Pollen 08/20/2008 VARSHA [employer] SERVER, CAROLYN S 719.46 Joint Pain, Localized In The Knee 08/20/2008 477.0 Allergic Rhinitis Due To Pollen 08/20/2008 719.46 Joint Pain, Localized In The Knee 08/20/2008 477.0 Allergic Rhinitis Due To Pollen 08/20/2008 719.46 Joint Pain, Localized In The Knee 08/20/2008 VARSHA [employer] SERVER, CAROLYN S 477.0 Allergic Rhinitis Due To Pollen 08/20/2008 VARSHA [employer] SERVER, CAROLYN S 719.46 Joint Pain, Localized In The Knee 08/20/2008 WERDER DO ERIN F 477.0 Allergic Rhinitis Due To Pollen 08/20/2008 WERDER DO ERIN F 719.46 Joint Pain, Localized In The Knee 08/20/2008 MCCKENNYY MANJULAYD, CHIDI L 477.0 Allergic Rhinitis Due To Pollen 08/20/2008 ANDREASY MANJULAYD, CHIDI L 719.46 Joint Pain, Localized In The Knee 08/20/2008 MCCKENNYY PSYD, CHIDI L 477.0 Allergic Rhinitis Due To Pollen 08/20/2008 NICOLE HUI, CHIDI L 719.46 Joint Pain, Localized In The Knee 08/20/2008 VARSHA [employer]ER, CAROLYN S 477.0 Allergic Rhinitis Due To Pollen 08/20/2008 VARSHA [employer] SERVER, CAROLYN S 719.46 Joint Pain, Localized In The Knee 08/20/2008 VENEGAS DO, SAUL K 477.0 Allergic Rhinitis Due To Pollen 08/20/2008 VENEGAS DO, SAUL K 719.46 Joint Pain, Localized In The Knee 08/20/2008 MCCLEEARY PSYD, CHIDI L 477.0 Allergic Rhinitis Due To Pollen 08/20/2008 MCCLEEARY PSYD, CHIDI L 719.46 Joint Pain, Localized In The Knee 08/20/2008 MCCLEEARY KORINA, CHIDI L 477.0 Allergic Rhinitis Due To Pollen 08/20/2008 NICOLE HUI, CHIDI L 719.46 Joint Pain, Localized In The Knee 08/20/2008 RUBI GARCIASAUL K 477.0 Allergic Rhinitis Due To Pollen 08/20/2008 VENEGAS , SAUL K 719.46 Joint Pain, Localized In The Knee 08/20/2008 DELORES CHAVEZ MD 477.0 Allergic Rhinitis Due To Pollen 08/20/2008 DELORES CHAVEZ MD 719.46 Joint Pain, Localized In The Knee 08/20/2008 MCCTANYAEARY KORINA, CHIDI L 477.0 Allergic Rhinitis Due To Pollen 08/20/2008 ANDREASY KORINA, CHIDI L 719.46 Joint Pain, Localized In The Knee 08/20/2008 ANDREASY KORINA, CHIDI L 477.0 Allergic Rhinitis Due To Pollen 08/20/2008 JARRET RIVERA PSYD ANN L 719.46 Joint Pain, Localized In The Knee 08/20/2008 LOPEZEARY PSREHANA, CHIDI L 477.0 Allergic Rhinitis Due To Pollen 08/20/2008 LOPEZEARY KORINA, CHIDI L 719.46 Joint Pain, Localized In The Knee 08/20/2008 LOPEZEARY KORINA, CHIDI L 477.0 Allergic Rhinitis Due To Pollen 08/20/2008 ANDREASY JARRET HUI ANN L 719.46 Joint Pain, Localized In The Knee 08/20/2008 ANDREASY JARRET HUI ANN L 477.0 Allergic Rhinitis Due To Pollen 08/20/2008 ANDREASY JARRET HUI ANN L 719.46 Joint Pain, Localized In The Knee 09/14/2008 ERIN ARAGON DO 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 09/14/2008 ERIN ARAGON DO 304.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 POLYSUB DEP 09/14/2008 ERIN ARAGON DO 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 09/14/2008 ERIN ARAGON DO V58.69 MEDICATION HIGH RISK 09/14/2008 ERIN ARAGON DO 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 09/14/2008 ERIN ARAGON DO 304.80 SA POLYSUB DEP 09/14/2008 ERIN ARAGON DO F 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 09/14/2008 ERIN ARAGON DO V58.69 MEDICATION HIGH RISK 09/14/2008 MARGO GARCIA, ERIN F 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 09/14/2008 ERIN ARAGON DO F 304.80 SA POLYSUB DEP 09/14/2008 ERIN ARAGON DO F 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 09/14/2008 ERIN ARAGON DO F V58.69 MEDICATION HIGH RISK 09/14/2008 MARGO DO, ERIN F 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 09/14/2008 MARGO GARCIA, ERIN F 304.80 SA POLYSUB DEP 09/14/2008 ERIN ARAGON DO F 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 09/14/2008 ERIN ARAGON DO V58.69 MEDICATION HIGH RISK 09/14/2008 ASHER MADDOX APRNNDA S 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 09/14/2008 ASHER MADDOX APRNNDA S 304.80 SA POLYSUB DEP 09/14/2008 VARSHA MANCININASHERCAROLYN S 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 09/14/2008 ASHER MADDOX APRNNDA S V58.69 MEDICATION HIGH RISK 09/14/2008 ASHER MADDOX APRNNDA S 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 09/14/2008 ASHER MADDOX APRNNDA S 304.80 SA POLYSUB DEP 09/14/2008 ASHER MADDOX APRNNDA S 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 09/14/2008 VARSHA CAFETERIA FOOD SERVER CAROLYN S V58.69 MEDICATION HIGH RISK 09/14/2008 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 09/14/2008 304.80 SA POLYSUB DEP 09/14/2008 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 09/14/2008 V58.69 MEDICATION HIGH RISK 09/14/2008 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 09/14/2008 304.80 SA POLYSUB DEP 09/14/2008 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69 MEDICATION HIGH RISK 09/14/2008 JARRET RIVERA PSYD ANN L 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 09/14/2008 JARRET RIVERA PSYD ANN L 304.80 SA POLYSUB DEP 09/14/2008 JARRET RIVERA PSYD ANN L 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 09/14/2008 JARRET RIVERA PSYD L V58.69 MEDICATION HIGH RISK 09/14/2008 JARRET RIVERA PSYD ANN L 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 09/14/2008 JARRET RIVERA PSYD ANN L 304.80 SA POLYSUB DEP 09/14/2008 JARRET RIVERA PSYD ANN L 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 09/14/2008 JARRET RIVERA PSYD L V58.69 MEDICATION HIGH RISK 09/14/2008 VARSHA MANCININ, CAROLYN S 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 09/14/2008 VARSHA CAFET[employer]IA FOOD SERVER, CAROLYN S 304.80 SA POLYSUB DEP 09/14/2008 VARSHA CAFETERIA FOOD SERVER, CAROLYN S 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 09/14/2008 VARSHA CAFETERIA FOOD SERVER, CAROLYN S V58.69 MEDICATION HIGH RISK 09/14/2008 VENEGAS DOROBERTA K 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 09/14/2008 VENEGAS DOROBERTA K 304.80 SA POLYSUB DEP 09/14/2008 VENEGAS DO SAUL K 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 09/14/2008 ROBERT VENEGAS DOA K V58.69 MEDICATION HIGH RISK 09/14/2008 JARRET RIVERA PSYD ANN L 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 09/14/2008 JARRET RIVERA PSYD ANN L 304.80 SA POLYSUB DEP 09/14/2008 JARRET RIVERA PSYD ANN L 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 09/14/2008 JARRET RIVERA PSYD L V58.69 MEDICATION HIGH RISK 09/14/2008 JARRET RIVERA PSYD ANN L 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 09/14/2008 JARRET RIVERA PSYD ANN L 304.80 SA POLYSUB DEP 09/14/2008 JARRET RIVERA PSYD ANN L 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 09/14/2008 JARRET RIVERA PSYD L V58.69 MEDICATION HIGH RISK 09/14/2008 VENEGAS DO SAUL K 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 09/14/2008 ROBERT VENEGAS DOA K 304.80 SA POLYSUB DEP 09/14/2008 VENEGAS DO SAUL K 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 09/14/2008 VENEGAS ROBERT GARCIAA K V58.69 MEDICATION HIGH RISK 09/14/2008 DELORES CHAVEZ MD 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 09/14/2008 DELORES CHAVEZ MD 304.80 SA POLYSUB DEP 09/14/2008 DELORES CHAVEZ MD 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 09/14/2008 DELORES CHAVEZ MD V58.69 MEDICATION HIGH RISK 09/14/2008 JARRET RIVERA PSYD ANN L 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 09/14/2008 JARRET RIVERA PSYD ANN L 304.80 SA POLYSUB DEP 09/14/2008 JARRET RIVERA PSYD ANN L 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 09/14/2008 JARRET RIVERA PSYD L V58.69 MEDICATION HIGH RISK 09/14/2008 JARRET RIVERA PSYD ANN L 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 09/14/2008 JARRET RIVERA PSYD ANN L 304.80 SA POLYSUB DEP 09/14/2008 JARRET RIVERA PSYD ANN L 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 09/14/2008 JARRET RIVERA PSYD ANN L V58.69 MEDICATION HIGH RISK 09/14/2008 JARRET RIVERA PSYD ANN L 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 09/14/2008 JARRET RIVERA PSYD ANN L 304.80 SA POLYSUB DEP 09/14/2008 JARRET RIVERA PSYD ANN L 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 09/14/2008 JARRET RIVERA PSYD ANN L V58.69 MEDICATION HIGH RISK 09/14/2008 JARRET RIVERA PSYD ANN L 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 09/14/2008 JARRET RIVERA PSYD ANN L 304.80 SA POLYSUB DEP 09/14/2008 JARRET RIVERA PSYD ANN L 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 09/14/2008 JARRET RIVERA PSYD ANN L V58.69 MEDICATION HIGH RISK 09/14/2008 JARRET RIVERA PSYD ANN L 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 09/14/2008 JARRET RIVERA PSYD ANN L 304.80 SA POLYSUB DEP 09/14/2008 JARRET RIVERA PSYD ANN L 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 09/14/2008 JARRET RIVERA PSYD ANN L V58.69 MEDICATION HIGH RISK 10/15/2008 ERIN ARAGON DO F 599.0 Urinary Tract Infection 10/15/2008 ERIN ARAGON DO F 599.0 Urinary Tract Infection 10/15/2008 ERIN ARAGON DO F 599.0 Urinary Tract Infection 10/15/2008 ERIN ARAGON DO F 599.0 Urinary Tract Infection 10/15/2008 XI MADDOX APRNA S 599.0 Urinary Tract Infection 10/15/2008 CAROLYN MADDOX APRN S 599.0 Urinary Tract Infection 10/15/2008 599.0 Urinary Tract Infection 10/15/2008 599.0 Urinary Tract Infection 10/15/2008 XI MADDOX APRNA S 599.0 Urinary Tract Infection 10/15/2008 ERIN ARAGON DO F 599.0 Urinary Tract Infection 10/15/2008 NICOLE HUI CHIDI L 599.0 Urinary Tract Infection 10/15/2008 MCCLEEARY PSYD, CHIDI L 599.0 Urinary Tract Infection 10/15/2008 VARSHA APRN, CAROLYN S 599.0 Urinary Tract Infection 10/15/2008 SAUL VENEGAS DO K 599.0 Urinary Tract Infection 10/15/2008 MCCLEEARY PSYD, CHIDI L 599.0 Urinary Tract Infection 10/15/2008 MCCLEEARY PSYD, CHIDI L 599.0 Urinary Tract Infection 10/15/2008 VENEGAS ROBERT GARCIAA K 599.0 Urinary Tract Infection 10/15/2008 DELORES CHAVEZ MD 599.0 Urinary Tract Infection 10/15/2008 MCCLEEARY PSYD, CHIDI L 599.0 Urinary Tract Infection 10/15/2008 MCCLEEARY PSYD, CHIDI L 599.0 Urinary Tract Infection 10/15/2008 MCCLEEARY PSREHANA, CHIDI L 599.0 Urinary Tract Infection 10/15/2008 MCCLEEARY PSYD, CHIDI L 599.0 Urinary Tract Infection 10/15/2008 MCCLEEARY PSYD, CHIDI L 599.0 Urinary Tract Infection 11/05/2008 WERELINA CHAWLA DOEN F 788.41 Urinary Frequency Increased 11/05/2008 WERDENTON DO ERIN F 788.41 Urinary Frequency Increased 11/05/2008 WERDER DO ERIN F 788.41 Urinary Frequency Increased 11/05/2008 WERDENTON DO ERIN F 788.41 Urinary Frequency Increased 11/05/2008 VARSHAFRANCIA KELLY CAROLYN S 788.41 Urinary Frequency Increased 11/05/2008 VARSHA CAFET[employer]IA FOOD SERVER, CAROLYN S 788.41 Urinary Frequency Increased 11/05/2008 788.41 Urinary Frequency Increased 11/05/2008 788.41 Urinary Frequency Increased 11/05/2008 VARSHA CAFET[employer] FOOD SERVER, CAROLYN S 788.41 Urinary Frequency Increased 11/05/2008 WERDENTON DO ERIN F 788.41 Urinary Frequency Increased 11/05/2008 MCCLEEARY PSREHANA, CHIDI L 788.41 Urinary Frequency Increased 11/05/2008 MCCTANYAEARY KORINA, CHIDI L 788.41 Urinary Frequency Increased 11/05/2008 XI MADDOX APRNA S 788.41 Urinary Frequency Increased 11/05/2008 VENEGAS DO, SAUL K 788.41 Urinary Frequency Increased 11/05/2008 JARRET RIVERA PSYD ANN L 788.41 Urinary Frequency Increased 11/05/2008 NICOLE HUI, CHIDI L 788.41 Urinary Frequency Increased 11/05/2008 VENEGAS DO SAUL K 788.41 Urinary Frequency Increased 11/05/2008 DELORES CHAVEZ MD 788.41 Urinary Frequency Increased 11/05/2008 NICOLE HUI, CHIDI L 788.41 Urinary Frequency Increased 11/05/2008 NICOLE HUI, CHIDI L 788.41 Urinary Frequency Increased 11/05/2008 JARRET RIVERA PSYD ANN L 788.41 Urinary Frequency Increased 11/05/2008 NICOLE HUI, CHIDI L 788.41 Urinary Frequency Increased 11/05/2008 JARRET RIVERA PSYD ANN L 788.41 Urinary Frequency Increased 12/29/2008 WERDER DO, ERIN F 311 MO DEPRESS NOS 12/29/2008 WERDER DO, ERIN F 311 MO DEPRESS NOS 12/29/2008 WERDER DO, ERIN F 311 MO DEPRESS NOS 12/29/2008 WERDER DO, ERIN F 311 MO DEPRESS NOS 12/29/2008 XI MADDOX APRNA S 311 MO DEPRESS NOS 12/29/2008 ASHER MADDOX APRNNDA S 311 MO DEPRESS NOS 12/29/2008 311 MO DEPRESS NOS 12/29/2008 311 MO DEPRESS NOS 12/29/2008 ASHER MADDOX APRNNDA S 311 MO DEPRESS NOS 12/29/2008 WERDER DO, ERIN F 311 MO DEPRESS NOS 12/29/2008 JARRET RIVERA PSYD ANN L 311 MO DEPRESS NOS 12/29/2008 JARRET RIVERA PSYD ANN L 311 MO DEPRESS NOS 12/29/2008 ASHER MADDOX APRNNDA S 311 MO DEPRESS NOS 12/29/2008 VENEGAS DO, SAUL K 311 MO DEPRESS NOS 12/29/2008 JARRET RIVERA PSYD ANN L 311 MO DEPRESS NOS 12/29/2008 JARRET RIVERA PSYD ANN L 311 MO DEPRESS NOS 12/29/2008 VENEGAS DO, SAUL K 311 MO DEPRESS NOS 12/29/2008 DELORES CHAVEZ MD 311 MO DEPRESS NOS 12/29/2008 JARRET RIVERA PSYD ANN L 311 MO DEPRESS NOS 12/29/2008 JARRET RIVERA PSYD ANN L 311 MO DEPRESS NOS 12/29/2008 JARRET RIVERA PSYD ANN L 311 MO DEPRESS NOS 12/29/2008 JARRET RIVERA PSYD ANN L 311 MO DEPRESS NOS 12/29/2008 JARRET RIVERA PSYD ANN L 311 MO DEPRESS NOS 01/20/2009 ERIN ARAGON DO F 719.45 PAIN IN JOINT, PELVIC REGION AND THIGH 01/20/2009 ERIN ARAGON DO F 719.45 PAIN IN JOINT, PELVIC REGION AND THIGH 01/20/2009 ERIN ARAGON DO F 719.45 PAIN IN JOINT, PELVIC REGION AND THIGH 01/20/2009 ERIN ARAGON DO F 719.45 PAIN IN JOINT, PELVIC REGION AND THIGH 01/20/2009 CAROLYN MADDOX APRN S 719.45 PAIN IN JOINT, PELVIC REGION AND THIGH 01/20/2009 ASHER MADDOX APRNNDA S 719.45 PAIN IN JOINT, PELVIC REGION AND THIGH 01/20/2009 719.45 PAIN IN JOINT, PELVIC REGION AND THIGH 01/20/2009 719.45 PAIN IN JOINT, PELVIC REGION AND THIGH 01/20/2009 ASHER MADDOX APRNNDA S 719.45 PAIN IN JOINT, PELVIC REGION AND THIGH 01/20/2009 ERIN ARAGON DO F 719.45 PAIN IN JOINT, PELVIC REGION AND THIGH 01/20/2009 JARRET RIVERA PSYD ANN L 719.45 PAIN IN JOINT, PELVIC REGION AND THIGH 01/20/2009 JARRET RIVERA PSYD ANN L 719.45 PAIN IN JOINT, PELVIC REGION AND THIGH 01/20/2009 ASHER MADDOX APRNNDA S 719.45 PAIN IN JOINT, PELVIC REGION AND THIGH 01/20/2009 SAUL VENEGAS DO 719.45 PAIN IN JOINT, PELVIC REGION AND THIGH 01/20/2009 JARRET RIVERA PSYD ANN L 719.45 PAIN IN JOINT, PELVIC REGION AND THIGH 01/20/2009 JARRET RIVERA PSYD ANN L 719.45 PAIN IN JOINT, PELVIC REGION AND THIGH 01/20/2009 SAUL VENEGAS DO 719.45 PAIN IN JOINT, PELVIC REGION AND THIGH 01/20/2009 SCOTT HOPSON, DELORES 719.45 PAIN IN JOINT, PELVIC REGION AND THIGH 01/20/2009 JARRET RIVERA PSYD ANN L 719.45 PAIN IN JOINT, PELVIC REGION AND THIGH 01/20/2009 JARRET RIVERA PSYD ANN L 719.45 PAIN IN JOINT, PELVIC REGION AND THIGH 01/20/2009 JARRET RIVERA PSYD ANN L 719.45 PAIN IN JOINT, PELVIC REGION AND THIGH 01/20/2009 JARRET RIVERA PSYD ANN L 719.45 PAIN IN JOINT, PELVIC REGION AND THIGH 01/20/2009 JARRET RIVERA PSYD ANN L 719.45 PAIN IN JOINT, PELVIC REGION AND THIGH 03/10/2009 ERIN ARAGON DO F 333.94 Restless Legs Syndrome (rls) 03/10/2009 ERIN ARAGON DO F 786.2 Cough 03/10/2009 ERIN ARAGON DO F 333.94 Restless Legs Syndrome (rls) 03/10/2009 ERIN ARAGON DO F 786.2 Cough 03/10/2009 ELINA ARAGON DOEN F 333.94 Restless Legs Syndrome (rls) 03/10/2009 ERIN ARAGON DO F 786.2 Cough 03/10/2009 ELINA ARAGON DOEN F 333.94 Restless Legs Syndrome (rls) 03/10/2009 ERIN ARAGON DO F 786.2 Cough 03/10/2009 VARSHA KELLY, CAROLYN S 333.94 Restless Legs Syndrome (rls) 03/10/2009 VARSHA KELLY, CAROLYN S 786.2 Cough 03/10/2009 VARSHA CAFETERIA FOOD SERVER, CAROLYN S 333.94 Restless Legs Syndrome (rls) 03/10/2009 VARSHA KELLY, CAROLYN S 786.2 Cough 03/10/2009 333.94 Restless Legs Syndrome (rls) 03/10/2009 786.2 Cough 03/10/2009 333.94 Restless Legs Syndrome (rls) 03/10/2009 786.2 Cough 03/10/2009 VARSHA KELLY CAROLYN S 333.94 Restless Legs Syndrome (rls) 03/10/2009 XI MADDOX APRNA S 786.2 Cough 03/10/2009 WERLOPEZ ERIN F 333.94 Restless Legs Syndrome (rls) 03/10/2009 WERDER DO ERIN F 786.2 Cough 03/10/2009 MCCBERNADETTE HUI, CHIDI L 333.94 Restless Legs Syndrome (rls) 03/10/2009 NICOLE HUI, CHIDI L 786.2 Cough 03/10/2009 MCCBERNADETTE HUI, CHIDI L 333.94 Restless Legs Syndrome (rls) 03/10/2009 NICOLE HUI, CHIDI L 786.2 Cough 03/10/2009 XI MADDOX APRNA S 333.94 Restless Legs Syndrome (rls) 03/10/2009 XI MADDOX APRNA S 786.2 Cough 03/10/2009 VENEGAS DO SAUL K 333.94 Restless Legs Syndrome (rls) 03/10/2009 VENEGAS DO SAUL K 786.2 Cough 03/10/2009 NICOLE HUI, CHIDI L 333.94 Restless Legs Syndrome (rls) 03/10/2009 NICOLE HUI, CHIDI L 786.2 Cough 03/10/2009 MCCBERNADETTE HUI, CHIDI L 333.94 Restless Legs Syndrome (rls) 03/10/2009 NICOLE HUI, CHIDI L 786.2 Cough 03/10/2009 VENEGAS DO SAUL K 333.94 Restless Legs Syndrome (rls) 03/10/2009 VENEGAS DO SAUL K 786.2 Cough 03/10/2009 DELORES CHAVEZ MD 333.94 Restless Legs Syndrome (rls) 03/10/2009 DELORES CHAVEZ MD 786.2 Cough 03/10/2009 NICOLE HUI, CHIDI L 333.94 Restless Legs Syndrome (rls) 03/10/2009 NICOLE HUI CHIDI L 786.2 Cough 03/10/2009 MCCBERNADETTE HUI, CHIDI L 333.94 Restless Legs Syndrome (rls) 03/10/2009 NICOLE HUI, CHIDI L 786.2 Cough 03/10/2009 MCCBERNADETTE HUI, CHIDI L 333.94 Restless Legs Syndrome (rls) 03/10/2009 JARRET RIVERA PSYD ANN L 786.2 Cough 03/10/2009 NICOLE HUI, CHIDI L 333.94 Restless Legs Syndrome (rls) 03/10/2009 NICOLE HUI, CHIDI L 786.2 Cough 03/10/2009 NICOLE HUI, CHIDI L 333.94 Restless Legs Syndrome (rls) 03/10/2009 NICOLE HUI, CHIDI L 786.2 Cough 03/24/2009 MARTHADER DOELINAEN F 465.9 Acute Upper Respiratory Infections Of Unspecified Site 03/24/2009 WERDER DO, ERIN F 465.9 Acute Upper Respiratory Infections Of Unspecified Site 03/24/2009 WERDER DO ERIN F 465.9 Acute Upper Respiratory Infections Of Unspecified Site 03/24/2009 WERDER DOELINAEN F 465.9 Acute Upper Respiratory Infections Of Unspecified Site 03/24/2009 VARSHA KELLY, CAROLYN S 465.9 Acute Upper Respiratory Infections Of Unspecified Site 03/24/2009 ASHER MADDOX APRNNDA S 465.9 Acute Upper Respiratory Infections Of Unspecified Site 03/24/2009 465.9 Acute Upper Respiratory Infections Of Unspecified Site 03/24/2009 465.9 Acute Upper Respiratory Infections Of Unspecified Site 03/24/2009 VARSHA KELLY CAROLYN S 465.9 Acute Upper Respiratory Infections Of Unspecified Site 03/24/2009 MARGO DOELINAEN F 465.9 Acute Upper Respiratory Infections Of Unspecified Site 03/24/2009 JARRET RIVERA PSYD ANN L 465.9 Acute Upper Respiratory Infections Of Unspecified Site 03/24/2009 JARRET RIVERA PSYD ANN L 465.9 Acute Upper Respiratory Infections Of Unspecified Site 03/24/2009 VARSHA KELLY CAROLYN S 465.9 Acute Upper Respiratory Infections Of Unspecified Site 03/24/2009 VENEGAS DO SAUL K 465.9 Acute Upper Respiratory Infections Of Unspecified Site 03/24/2009 JARRET RIVERA PSYD ANN L 465.9 Acute Upper Respiratory Infections Of Unspecified Site 03/24/2009 JARRET RIVERA PSYD ANN L 465.9 Acute Upper Respiratory Infections Of Unspecified Site 03/24/2009 VENEGAS DO SAUL K 465.9 Acute Upper Respiratory Infections Of Unspecified Site 03/24/2009 DELORES CHAVEZ MD 465.9 Acute Upper Respiratory Infections Of Unspecified Site 03/24/2009 JARRET RIVERA PSYD ANN L 465.9 Acute Upper Respiratory Infections Of Unspecified Site 03/24/2009 NICOLE FAIRYD, CHIDI L 465.9 Acute Upper Respiratory Infections Of Unspecified Site 03/24/2009 NICOLE HUI CHIDI L 465.9 Acute Upper Respiratory Infections Of Unspecified Site 03/24/2009 NICOLE FAIRYD, CHIDI L 465.9 Acute Upper Respiratory Infections Of Unspecified Site 03/24/2009 NICOLE FAIRYD, CHIDI L 465.9 Acute Upper Respiratory Infections Of Unspecified Site 06/03/2009 WERDER DO, ERIN F 466.0 Acute Bronchitis 06/03/2009 WERDER DO, ERIN F 466.0 Acute Bronchitis 06/03/2009 WERDER DO, ERIN F 466.0 Acute Bronchitis 06/03/2009 WERDER DO, ERIN F 466.0 Acute Bronchitis 06/03/2009 VARSHA [employer] SERVER, CAROLYN S 466.0 Acute Bronchitis 06/03/2009 VARSHA CAFET[employer] FO[employer] SERVER, CAROLYN S 466.0 Acute Bronchitis 06/03/2009 466.0 Acute Bronchitis 06/03/2009 466.0 Acute Bronchitis 06/03/2009 VARSHA [employer]FET[employer]IA FOOD SERVER, CAROLYN S 466.0 Acute Bronchitis 06/03/2009 WERDER DO, ERIN F 466.0 Acute Bronchitis 06/03/2009 JARRET RIVERA PSYD ANN L 466.0 Acute Bronchitis 06/03/2009 NICOLE HUI CHIDI L 466.0 Acute Bronchitis 06/03/2009 VARSHA [employer] SERVER, CAROLYN S 466.0 Acute Bronchitis 06/03/2009 VENEGAS DO, SAUL K 466.0 Acute Bronchitis 06/03/2009 JARRET RIVERA PSYD ANN L 466.0 Acute Bronchitis 06/03/2009 JARRET RIVERA PSYD ANN L 466.0 Acute Bronchitis 06/03/2009 VENEGAS DO, SAUL K 466.0 Acute Bronchitis 06/03/2009 DELORES CHAVEZ MD 466.0 Acute Bronchitis 06/03/2009 JARRET RIVERA PSYD ANN L 466.0 Acute Bronchitis 06/03/2009 JARRET RIVERA PSYD L 466.0 Acute Bronchitis 06/03/2009 JARRET RIVERA PSYD L 466.0 Acute Bronchitis 06/03/2009 JARRET RIVERA PSYD L 466.0 Acute Bronchitis 06/03/2009 JARRET RIVERA PSYD L 466.0 Acute Bronchitis 11/22/2009 WERDER DO, ERIN F V70.3 Sports/school Exam 11/22/2009 WERDER DO, ERIN F V70.3 Sports/school Exam 11/22/2009 WERDER DO, ERIN F V70.3 Sports/school Exam 11/22/2009 WERDER DO, ERIN F V70.3 Sports/school Exam 11/22/2009 VARSHA KELLY CAROLYN S V70.3 Sports/school Exam 11/22/2009 VARSHA [employer] SERVER, CAROLYN S V70.3 Sports/school Exam 11/22/2009 V70.3 Sports/school Exam 11/22/2009 V70.3 Sports/school Exam 11/22/2009 ASHER MADDOX APRNNDA S V70.3 Sports/school Exam 11/22/2009 WERDER DO, ERIN F V70.3 Sports/school Exam 11/22/2009 JARRET RIVERA PSYD L V70.3 Sports/school Exam 11/22/2009 JARRET RIVERA PSYD ANN L V70.3 Sports/school Exam 11/22/2009 VARSHA KELLY CAROLYN S V70.3 Sports/school Exam 11/22/2009 SAUL VENEGAS DO K V70.3 Sports/school Exam 11/22/2009 JARRET RIVERA PSYD L V70.3 Sports/school Exam 11/22/2009 JARRET RIVERA PSYD L V70.3 Sports/school Exam 11/22/2009 SAUL VENEGAS DO K V70.3 Sports/school Exam 11/22/2009 DELORES CHAVEZ MD V70.3 Sports/school Exam 11/22/2009 JARRET RIVERA PSYD L V70.3 Sports/school Exam 11/22/2009 JARRET RIVERA PSYD L V70.3 Sports/school Exam 11/22/2009 JARRET RIVERA PSYD L V70.3 Sports/school Exam 11/22/2009 JARRET RIVERA PSYD L V70.3 Sports/school Exam 11/22/2009 JARRET RIVERA PSYD L V70.3 Sports/school Exam 03/12/2010 Ot 466.0 03/12/2010 Ot 493.92 03/12/2010 Ot 786.2 03/30/2010 Ot 465.9 03/30/2010 Ot 786.2 05/09/2010 WERDER DO, ERIN F 009.1 Gastroenteritis Infect 05/09/2010 WERDER DO, ERIN F 009.1 Gastroenteritis Infect 05/09/2010 WERDER DO, ERIN F 009.1 Gastroenteritis Infect 05/09/2010 WERDENTON DO ERIN F 009.1 Gastroenteritis Infect 05/09/2010 XI MADDOX APRNA S 009.1 Gastroenteritis Infect 05/09/2010 CAROLYN MADDOX APRN S 009.1 Gastroenteritis Infect 05/09/2010 009.1 Gastroenteritis Infect 05/09/2010 009.1 Gastroenteritis Infect 05/09/2010 CAROLYN MADDOX APRN S 009.1 Gastroenteritis Infect 05/09/2010 MARGO DOELINAEN F 009.1 Gastroenteritis Infect 05/09/2010 JARRET RIVERA PSYD L 009.1 Gastroenteritis Infect 05/09/2010 JARRET RIVERA PSYD ANN L 009.1 Gastroenteritis Infect 05/09/2010 CAROLYN MADDOX APRN S 009.1 Gastroenteritis Infect 05/09/2010 ROBERT VENEGAS DOA K 009.1 Gastroenteritis Infect 05/09/2010 JARRET RIVERA PSYD ANN L 009.1 Gastroenteritis Infect 05/09/2010 JARRET RIVERA PSYD ANN L 009.1 Gastroenteritis Infect 05/09/2010 VENEGAS DO SAUL K 009.1 Gastroenteritis Infect 05/09/2010 DELORES CHAVEZ MD 009.1 Gastroenteritis Infect 05/09/2010 JARRET RIVERA PSYD ANN L 009.1 Gastroenteritis Infect 05/09/2010 JARRET RIVERA PSYD ANN L 009.1 Gastroenteritis Infect 05/09/2010 JARRET RIVERA PSYD ANN L 009.1 Gastroenteritis Infect 05/09/2010 JARRET RIVERA PSYD ANN L 009.1 Gastroenteritis Infect 05/09/2010 JARRET RIVERA PSYD ANN L 009.1 Gastroenteritis Infect 05/12/2010 WERDER DO, ERIN F 296.90 UNSPECIFIED EPISODIC MOOD DISORDER 05/12/2010 WERDER DO, ERIN F 296.90 UNSPECIFIED EPISODIC MOOD DISORDER 05/12/2010 WERDER DO, ERIN F 296.90 UNSPECIFIED EPISODIC MOOD DISORDER 05/12/2010 WERDER DO, ERIN F 296.90 UNSPECIFIED EPISODIC MOOD DISORDER 05/12/2010 VARSHA KELLY CAROLYN S 296.90 UNSPECIFIED EPISODIC MOOD DISORDER 05/12/2010 VARSHA CAFETERIA FOOD SERVER CAROLYN S 296.90 UNSPECIFIED EPISODIC MOOD DISORDER 05/12/2010 296.90 UNSPECIFIED EPISODIC MOOD DISORDER 05/12/2010 296.90 UNSPECIFIED EPISODIC MOOD DISORDER 05/12/2010 VARSHA KELLY CAROLYN S 296.90 UNSPECIFIED EPISODIC MOOD DISORDER 05/12/2010 WERDER DO, ERIN F 296.90 UNSPECIFIED EPISODIC MOOD DISORDER 05/12/2010 JARRET RIVERA PSYD ANN L 296.90 UNSPECIFIED EPISODIC MOOD DISORDER 05/12/2010 JARRET RIVERA PSYD ANN L 296.90 UNSPECIFIED EPISODIC MOOD DISORDER 05/12/2010 VARSHA KELLY CAROLYN S 296.90 UNSPECIFIED EPISODIC MOOD DISORDER 05/12/2010 SAUL VENEGAS DO K 296.90 UNSPECIFIED EPISODIC MOOD DISORDER 05/12/2010 JARRET RIVERA PSYD ANN L 296.90 UNSPECIFIED EPISODIC MOOD DISORDER 05/12/2010 JARRET RIVERA PSYD ANN L 296.90 UNSPECIFIED EPISODIC MOOD DISORDER 05/12/2010 SAUL VENEGAS DO K 296.90 UNSPECIFIED EPISODIC MOOD DISORDER 05/12/2010 DELORES CHAVEZ MD 296.90 UNSPECIFIED EPISODIC MOOD DISORDER 05/12/2010 JARRET RIVERA PSYD ANN L 296.90 UNSPECIFIED EPISODIC MOOD DISORDER 05/12/2010 JARRET RIVERA PSYD ANN L 296.90 UNSPECIFIED EPISODIC MOOD DISORDER 05/12/2010 JARRET RIVERA PSYD ANN L 296.90 UNSPECIFIED EPISODIC MOOD DISORDER 05/12/2010 JARRET RIVERA PSYD ANN L 296.90 UNSPECIFIED EPISODIC MOOD DISORDER 05/12/2010 JARRET RIVERA PSYD ANN L 296.90 UNSPECIFIED EPISODIC MOOD DISORDER 06/21/2010 Ot 465.9 ACUTE URI NOS 06/21/2010 Ot 786.2 COUGH 07/12/2010 Ot 490 BRONCHITIS NOS 07/12/2010 Ot 786.2 COUGH 08/01/2010 Ot 959.01 HEAD INJURY, NOS 08/01/2010 Ot 959.6 HIP THIGH INJURY NOS 08/01/2010 Ot 959.7 LOWER LEG INJURY NOS 08/01/2010 Ot E000.8 OTHER EXTERNAL CAUSE STATUS 08/01/2010 Ot E849.0 ACCIDENT IN HOME 08/01/2010 Ot E888.1 FALL STRIKING OBJECT NEC 10/22/2010 Ot 682.2 CELLULITIS OF TRUNK 10/22/2010 Ot 682.3 CELLULITIS OF ARM 10/25/2010 Ot 682.3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
--- OUTSIDE RECORDS SUMMARY | 2016-08-13 16:40 | XMS REPORT ---
Author Author CAROLYN MADDOX [facility] eClinicalWorks Address Unknown Phone Unavailable Care Team Providers Care Nurse First Assist Name Role Phone CAROLYN MADDOX CP Unavailable [...]
--- OUTSIDE RECORDS SUMMARY | 2016-08-13 16:40 | XMS REPORT ---
Author Author CAROLYN MADDOX Organization e[employer] Address Unknown Phone Unavailable Care Team Providers Care Special Events Manager Name Role Phone CAROLYN MADDOX CP Unavailable [...] Status Dosage tramadol NDC 0 50 mg 1 TAB orally every 6 hours July 06, 2014 1 tablet by Oral route 3 times per day 2 at hs and 1 prn during the day Clonazepam NDC [address]-62 0.5 MG 1 TAB orally 4 times a day Jun 03, 2014 1 Tablet by Oral route 1 time per day at 9 a.m. and 3 tabs po at 7 p.m. Results No Known Results Summary Purpose eClinicalWorks Submission
--- OUTSIDE RECORDS SUMMARY | 2016-08-13 16:40 | XMS REPORT ---
Author Author CAROLYN MADDOX Organization [employer] Address Unknown Phone Unavailable Care Team Providers Care Fixed Wing Aircraft Flight Mechanic Name Role Phone CAROLYN MADDOX CP Unavailable [...] 1 prn during the day Clonazepam NDC [address]-45 0.5 MG 1 TAB orally 4 times a day Jun 03, 2014 1 Tablet by Oral route 1 time per day at 9 a.m. and 3 tabs po at 7 p.m. Results No Known Results Summary Purpose eClinicalWorks Submission
--- OUTSIDE RECORDS SUMMARY | 2016-08-13 16:40 | XMS REPORT ---
Author Author KATHARINA VALLES Organization [employer] Address Unknown Phone Unavailable Care Team Providers Care Director Global Medical Affairs Name Role Phone KATHARINA VALLES Unavailable Allergies No Known Allergies Problems Problem [...] 307.42 Active Problem Esophageal reflux 530.81 Active Problem Encounter for long-term (current) use of other medications V58.69 Active Medications No Known Medications Results No Known Results Summary Purpose eClinicalWorks Submission
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
--- OUTSIDE RECORDS SUMMARY | 2016-08-13 16:41 | XMS REPORT ---
Author Author CAROLYN MADDOX Organization [employer] Address Unknown Phone Unavailable Care Team Providers Care Optimization Engineer Name Role Phone CAROLYN MADDOX CP Unavailable Allergies No Known Allergies Problems Problem Type Condition ICD-9 Code Onset Dates Condition Status Problem Esophageal [...] Date End Date Status Dosage Clonazepam NDC [address]-60 0.5 MG 1 TAB orally 4 times [...]
--- OUTSIDE RECORDS SUMMARY | 2016-08-13 16:41 | XMS REPORT ---
Author Author GREGORY TARIQ [employer] Address Unknown Phone Unavailable Care Team Providers Care Cloud Consultant Name Role Phone GREGORY TARIQ CP Unavailable Allergies, Adverse Reactions, Alerts Substance [...] Active Problem Esophageal reflux 530.81 Active Assessment Encounter for dental examination Z01.20 Active Problem Periapical abscess without sinus 522.5 [...] Instructions Start Date End Date Status Dosage Ranitidine HCl [facility] 69179978689 150 MG 1 TABLET BY ORAL ROUTE 2 TIMES PER DAY Trazodone HCl [facility] [address]-16 100 MG Orally Once a day 2 tablets at bedtime tramadol NDC 0 50 mg by oral route Once a day July 06, 2014 2 tablets at bedtime and 1 tablet PRN during the day Naproxen NDC 0 not defined HydrOXYzine HCl [facility] [address]-60 10 mg Orally 3 times a day 1 tablet as needed Depo-Provera [facility] [address]-86 150 MG/ML Intramuscular every three months 1 ml Zithromax [facility] [address]-33 250 MG Orally Once a day 2 tablets on the first day, then 1 tablet daily for 4 days Topamax [facility] [address]-13 100 MG Orally Twice a day Dec 10, 2014 1 tablet Escitalopram Oxalate [facility] [place] [address]-24 not defined Carbamazepine [facility] [place] [address]-74 200 MG Orally Once a day 1 tablet at bedtime Procedures Procedure Coding System Code Date TOPICAL FLUORIDE VARNISH CPT-4 D1206 Feb 15, 2016 PROPHYLAXIS - ADULT CPT-4 D1110 Feb 15, 2016 Vital Signs Date/Time: Feb 15, 2016 Blood Pressure Diastolic 72 mmHg Blood Pressure Systolic 112 mmHg Results No Known Results Summary Purpose eClinicalWorks Submission
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
--- OUTSIDE RECORDS SUMMARY | 2016-08-13 16:41 | XMS REPORT ---
Author Author CAROLYN MADDOX Organization eClinicalWorks Address Unknown Phone Unavailable Care Team Providers Care Corporate Secretary Name Role Phone CAROLYN MADDOX CP Unavailable [...] Date End Date Status Dosage Clonazepam NDC [address]-89 0.5 MG 1 TAB orally 4 times [...]
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
--- OUTSIDE RECORDS SUMMARY | 2016-08-13 16:42 | XMS REPORT ---
Author Author LUH HOUSE [facility] eClinicalWorks Address Unknown Phone Unavailable Care Team Providers Care Clinic Lead Name Role Phone LUH HOUSE CP Unavailable Allergies, Adverse Reactions, Alerts Substance [...] at health care facility V70.0 Active Assessment Dental examination Z01.20 Active Problem Periapical abscess without sinus 522.5 Active Problem Persistent disorder of initiating or maintaining sleep 307.42 Active Medications Medication Code System Code Instructions Start Date End Date Status Dosage Ranitidine HCl [facility] 28567167968 150 MG 1 TABLET BY ORAL ROUTE 2 TIMES PER DAY Clonazepam [facility] [address]-27 0.5 MG 1 TAB orally 4 times a day Jun 03, 2014 1 Tablet by Oral route 1 time per day at 9 a.m. and 3 tabs po at 7 p.m. Meloxicam [facility] 06508211854 7.5 MG take 1 tablet by Oral route 2 times per day PRN anti-inflammatory med for severe pain Ortho Tri-Cyclen (28) [facility] [address]-91 0.18/0.215/0.25 MG-35 MCG Orally Once a day 1 tablet Carbamazepine [facility] 77192077328 200 TAKE 1 TABLET BY MOUTH EVERY NIGHT AT BEDTIME Effexor XR [facility] 34461936174 150 MG 1 capsule by Oral route 1 time per day at bedtime tramadol NDC 0 50 mg 1 TAB orally every 6 hours July 06, 2014 1 tablet by Oral route 3 times per day 2 at hs and 1 prn during the day Topamax [facility] [address]-59 100 MG Orally Twice a day Dec 10, 2014 1 tablet Procedures Procedure Coding System Code Date PULP CAP - INDIRECT CPT-4 D3120 Apr 29, 2015 Billing Notes on claim CPT-4 EC109 Apr 29, 2015 AMALGAM-3 SURFACES PRIMARY/PERM CPT-4 D2160 Apr 29, 2015 Vital Signs Date/Time: Apr 29, 2015 Blood Pressure Diastolic 80 mmHg Blood Pressure Systolic 111 mmHg Height 68 in Results No Known Results Summary Purpose eClinicalWorks Submission
--- OUTSIDE RECORDS SUMMARY | 2016-08-13 16:42 | XMS REPORT ---
Author Author CAROLYN MADDOX Organization eClinicalWorks Address Unknown Phone Unavailable Care Team Providers Care Embossing Calender Operator Name Role Phone CAROLYN MADDOX CP [...] Date End Date Status Dosage Clonazepam NDC [address]-23 0.5 MG 1 TAB orally 4 times [...]
--- OUTSIDE RECORDS SUMMARY | 2016-08-13 16:42 | XMS REPORT ---
Author JORDAN Angela [facility] eClinicalWorks Address Unknown Phone Unavailable Care Team Providers Care Supervisor Bridges And Buildings Name Role Phone JORDAN RONDON CP Unavailable Allergies, Adverse Reactions, Alerts Substance [...] at health care facility V70.0 Active Assessment Encounter for dental examination V72.2 Active Problem Periapical abscess without sinus 522.5 Active Problem Persistent disorder of initiating or maintaining sleep 307.42 Active Medications Medication Code System Code Instructions Start Date End Date Status Dosage Carbamazepine [facility] [address]-01 200 MG Orally Once a day 1 tablet by Oral route 1 time per day at Ortho Tri-Cyclen (28) [facility] [address]-48 0.18/0.215/0.25 MG-35 MCG Orally Once a day 1 tablet Meloxicam [facility] 41632554815 7.5 MG take 1 tablet by Oral route 2 times per day PRN anti-inflammatory med for severe pain Clonazepam [facility] [address]-64 0.5 MG 1 TAB orally 4 times a day Jun 03, 2014 1 Tablet by Oral route 1 time per day at 9 a.m. and 3 tabs po at 7 p.m. Topamax [facility] [address]-75 100 MG Orally Twice a day Dec 10, 2014 1 tablet Ranitidine HCl [facility] 39352954630 150 MG 1 TABLET BY ORAL ROUTE 2 TIMES PER DAY Effexor XR [facility] [address]-03 150 MG Orally Once a day Apr 30, 2014 1 capsule by Oral route 1 time per day at bedtime tramadol NDC 0 50 mg 1 TAB orally every 6 hours July 06, 2014 1 tablet by Oral route 3 times per day 2 at hs and 1 prn during the day Procedures Procedure Coding System Code Date INTRAORL-PERIAPICAL 1 FILM 75437 CPT-4 D0220 Dec 22, 2014 INTRAORL-PERIAPICAL EA ADD FILM CPT-4 D0230 Dec 22, 2014 COMP ORAL EVALUATION - NEW/EST PT CPT-4 D0150 Mar 01, 2015 BITEWINGS - FOUR FILMS CPT-4 D0274 Dec 22, 2014 INTRAORL-PERIAPICAL EA ADD FILM CPT-4 D0230 Dec 22, 2014 PROPHYLAXIS - ADULT CPT-4 D1110 Mar 01, 2015 PANORAMIC FILM SEE ALSO CODE 99190 CPT-4 D0330 Dec 22, 2014 Vital Signs Date/Time: Dec 22, 2014 Blood Pressure Diastolic 81 mmHg Blood Pressure Systolic 112 mmHg Cardiac Monitoring Heart Rate 82 bpm Results No Known Results Summary Purpose eClinicalWorks Submission
--- OUTSIDE RECORDS SUMMARY | 2016-08-13 16:42 | XMS REPORT ---
Author Author SAMSON VILLEGAS [facility] eClinicalWorks Address Unknown Phone Unavailable Care Team Providers Care Client Experience Administrator Name Role Phone SAMSON VILLEGAS Unavailable Allergies, Adverse Reactions, Alerts Substance Reaction [...] Active Problem Esophageal reflux 530.81 Active Assessment Phlebitis I80.9 Active Problem Encounter for long-term (current) use of other medications V58.69 Active Medications Medication Code System Code Instructions Start Date End Date Status Dosage tramadol ND 0 50 mg by oral route Once a day July 06, 2014 2 tablets at bedtime and 1 tablet PRN during the day Clindamycin HCl [facility] [address]-75 300 MG Orally every 8 hrs October 08, 2015 October 18, 2015 1 capsule Venlafaxine HCl ER [facility] 74707530828 150 TAKE 1 CAPSULE BY MOUTH EVERY NIGHT AT BEDTIME Depo-Provera [facility] [address]-11 not defined Effexor XR [facility] 2001 [address]-11 150 MG 1 capsule by Oral route 1 time per day at bedtime Topiramate [facility] 48811671476 100 TAKE 1 TABLET BY MOUTH TWICE DAILY Carbamazepine [facility] 82602882298 200 TAKE 1 TABLET BY MOUTH EVERY NIGHT AT BEDTIME Ranitidine HCl [facility] 25479714425 150 MG 1 TABLET BY ORAL ROUTE 2 TIMES PER DAY Topamax [facility] [address]-06 100 MG Orally Twice a day Dec 10, 2014 1 tablet Meloxicam [facility] [id number] 7.5 MG take 1 tablet by Oral route 2 times per day PRN anti-inflammatory med for severe pain Clonazepam [facility] [address]-64 0.5 MG Orally at 9:00AM and 3 Tablets at 7: 00PM daily August 03, 2015 1 tablet Procedures Procedure Coding System Code Date Office Visit, Est Pt., Level 3 CPT-4 63545 October 14, 2015 [facility] VISIT ESTABLISHED PATIENT CPT-4 G0467 October 14, 2015 Vital Signs Date/Time: October 14, 2015 Cardiac Monitoring Heart Rate 76 bpm Weight 198.6 lbs Height 68 in Blood Pressure Diastolic 90 mmHg Blood Pressure Systolic 130 mmHg Results No Known Results Summary Purpose eClinicalWorks Submission
--- OUTSIDE RECORDS SUMMARY | 2016-08-13 16:42 | XMS REPORT ---
Author Author CAROLYN MADDOX Organization eClinicalWorks Address Unknown Phone Unavailable Care Team Providers Care Burr Bench Hand Name Role Phone CAROLYN MADDOX CP Unavailable [...] initiating or maintaining sleep 307.42 Active Assessment Unspecified mood [affective] disorder F39 Active Assessment Chronic pain due to trauma [...] Date End Date Status Dosage Clonazepam NDC [address]-27 0.5 MG Orally at 9:00AM and 3 Tablets at 7: 00PM daily August 03, 2015 1 tablet tramadol NDC 0 50 mg by oral route Once a day July 06, 2014 2 tablets at bedtime and 1 tablet PRN during the day Results No Known Results Summary Purpose eClinicalWorks Submission
--- OUTSIDE RECORDS SUMMARY | 2016-08-13 16:42 | XMS REPORT ---
Author Author CAROLYN MADDOX Organization eClinicalWorks Address Unknown Phone Unavailable Care Team Providers Care Cigar Head Holer Name Role Phone CAROLYN MADDOX CP Unavailable [...] Start Date End Date Status Dosage Topamax [facility] [address]-23 100 MG Orally Twice a day Dec 10, 2014 1 tablet Results No Known Results Summary Purpose eClinicalWorks Submission
--- OUTSIDE RECORDS SUMMARY | 2016-08-13 16:42 | XMS REPORT ---
Author Author CAROLYN MADDOX Organization eClinicalWorks Address Unknown Phone Unavailable Care Team Providers Care Flour Blender Name Role Phone CAROLYN MADDOX CP Unavailable [...] Active Problem Esophageal reflux 530.81 Active Problem Periapical abscess without sinus 522.5 [...] Start Date End Date Status Dosage Meloxicam [facility] [address]-14 7.5 MG Orally 2 times a day Feb 01, 2016 Mar 02, 2016 1 tablet Results No Known Results Summary Purpose eClinicalWorks Submission
== END 2016-07-12 13:50 | disposition home or self-care (01) ==
LOC: SDC 08:48
PROVIDERS: ATTEND Orthopaedic Surgery
DX: M23.8X1 Other internal derangements of right knee (principal); M22.41 Chondromalacia patellae, right knee; F17.210 Nicotine dependence, cigarettes, uncomplicated; J45.909 Unspecified asthma, uncomplicated
CPT/HCPCS: 36415; 84703

== ENCOUNTER 2016-08-23 13:48 | Outpatient (CLI) | payer MEDICARE, MEDICAID ==
[~2016-08-23] VITALS: Ht 172.7 cm; Wt 107.0 kg
[~2016-08-23 13:48] MED LIST changes: +HYDR-3816 PO
[2016-08-23 14:09] VITALS: BP 141/82
== END 2016-08-23 14:20 | disposition home or self-care (01) ==
LOC: PREOP 13:48
PROVIDERS: ATTEND Orthopaedic Surgery
DX: Z01.818 Encounter for other preprocedural examination (principal); Z11.2 Encounter for screening for other bacterial diseases; M22.42 Chondromalacia patellae, left knee
CPT/HCPCS: 87081

== ENCOUNTER 2016-08-30 08:30 | Day surgery (SDC) | payer MEDICARE, MEDICAID ==
--- NOTE | 2016-08-22 10:48 | HISTORY AND PHYSICAL ---
DATE OF SERVICE: 08/30/2016 REASON FOR ADMISSION: Outpatient surgery for left knee arthroscopy. HISTORY OF PRESENT ILLNESS: The patient is a 35-year-old female with complaints of left anterior knee pain, catching and locking. She reports pain with squatting, kneeling and with stairs. She has undergone arthroscopy in the past with good results. She reports increasing pain and activity modifications and due to functional impairment and failure to improve with conservative measures, the patient has elected to proceed with surgical intervention. REVIEW OF SYSTEMS: No chest pain, no shortness of breath, no dysuria. PAST MEDICAL HISTORY: Closed-head injury. PAST SURGICAL HISTORY: Bilateral knee arthroscopies, bilateral Achilles lengthening, tracheotomy. SOCIAL HISTORY: The patient denies alcohol and tobacco use. FAMILY HISTORY: Significant for hypertension. PRIMARY CARE: [facility]. ALLERGIES: PENICILLIN and CIPRO. PHYSICAL EXAMINATION: GENERAL: The patient is well-developed, well-nourished, in no acute distress. HEENT: Normocephalic, atraumatic. Pupils are equal, round and reactive to light. Oropharynx is clear. NECK: Supple. No lymphadenopathy. LUNGS: Clear to auscultation bilaterally. HEART: Regular rate and rhythm. ABDOMEN: Soft, nontender, nondistended. EXTREMITIES: The left knee demonstrates a mild effusion. She has patellofemoral crepitus and pain with patellar loading. She has negative Ciarra, negative anterior and posterior drawer. No varus-valgus laxity. Negative pivot shift. Range of motion of her knee is 0/0/140. IMPRESSION: Left knee chondromalacia of the patella. PLAN: Left knee arthroscopy with chondroplasty. The risks, benefits, options, ramifications and recovery have been discussed at length with the patient. She understands and wishes to proceed. Job ID: [id number] DocumentID: [id number] Dictated Date: 08/22/2016 09:36:34 Medication Technician Date: 08/22/2016 10:47:37 Dictated By: PONCE SANDY MD
[~2016-08-30] VITALS: Ht 172.7 cm; Wt 107.0 kg
[2016-08-30] MEDS ORDERED: CLINDAMYCIN 600 MG/50 ML IVPB 50 ML IV ONE (08:36)
--- NOTE | 2016-08-30 08:38 | Progress Note-Pre Operative ---
Pre-Operative Progress Note H&P Reviewed The H&P was reviewed, patient examined and no changes noted. Date H&P Reviewed: August 30, 2016 Time H&P Reviewed: 08:38 Pre-Operative Diagnosis: left knee chondromalacia patella PONCE SANDY MD August 30, 2016 08:38
--- NOTE | 2016-08-30 08:39 | Progress Note-Post Operative ---
Post-Operative Progess Note Surgeon (s)/Administrative Office Specialist (s) Surgeon PONCE SANDY MD Administrative Office Specialist: none Pre-Operative Diagnosis left knee chondromalacia patella Post-Operative Diagnosis left knee chondromalacia patella and lateral tibial plateau Procedure & Operative Findings Date of Procedure 08/30/16 Procedure Performed/Findings left knee arthroscopic chondroplasty of the patella and lateral tibial plateau Anesthesia Type GETA Estimated Blood Loss Estimated blood loss (mL): minimal Specimens/Packing Specimens Removed none Packing: none PONCE SANDY MD August 30, 2016 08:39
[2016-08-30] MEDS ORDERED: CLINDAMYCIN 600 MG/NS 50 ML IVPB IV ONE ×2 (08:45)
[2016-08-30] MEDS ORDERED: HYDROcodone/APAP 5 MG/325 MG (LORTAB) TAB PO PRN (08:45)
[2016-08-30] MEDS ORDERED: LACTATED RINGERS 1,000 ML IV PRN (08:58)
[2016-08-30] MEDS ORDERED: MIDAZOLAM 2 MG/2 ML (VERSED) VIAL ONE ×2 (09:00→09:11)
[2016-08-30 09:01] VITALS: BP 132/94
[2016-08-30] MEDS ORDERED: LACTATED RINGERS 1,000 ML IV ONE (09:10)
[2016-08-30] MEDS ORDERED: fentaNYL INJECTION 100 MCG/2 ML AMP ONE (09:10)
[2016-08-30] MEDS ORDERED: LIDOCAINE PF 2% 10 ML (XYLOCAINE) AMP ONE (09:10)
[2016-08-30] MEDS ORDERED: DEXAMETHASONE PF 10 MG/ML (DECADRON) VIAL ONE (09:10)
[2016-08-30] MEDS ORDERED: SEVOFLURANE (ULTANE) 15 ML INHAL SOLN ONE (09:10)
[2016-08-30] MEDS ORDERED: ONDANSETRON 4 MG/2 ML (SDV) Z0FRAN ONE ×2 (09:10→10:02)
[2016-08-30] MEDS ORDERED: proPOfol 200 MG/20 ML (DIPRIVAN) VIAL IV ONE (09:10)
[2016-08-30] MEDS ORDERED: MIDAZOLAM 2 MG/2 ML (VERSED) VIAL IV ONE (09:15)
[2016-08-30] MEDS ORDERED: morphine PF (DURAMORPH) 10 MG/10 ML AMP ONE (09:25)
[2016-08-30] MEDS ORDERED: BUPIVACAINE 0.25% 30 ML (SENSORCAINE) VIAL ONE (09:25)
[2016-08-30] MEDS ORDERED: morphine INJ 10 MG/ML 1ML (SYR OR VIAL) ONE (10:02)
[2016-08-30] MEDS ORDERED: ONDANSETRON 4 MG/2 ML (SDV) Z0FRAN IVP PRN (10:30)
[2016-08-30] MEDS ORDERED: MEPERIDINE (DEMEROL) INJ 50 MG/ML IVP PRN (10:30)
[2016-08-30] MEDS ORDERED: fentaNYL INJECTION 100 MCG/2 ML AMP IVP PRN (10:30)
[2016-08-30] MEDS: morphine INJ 10 MG/ML 1ML (SYR OR VIAL) IVP PRN ×2 (10:34→10:39)
[2016-08-30 11:10] VITALS: BP 125/82
[2016-08-30] MEDS ORDERED: HYDR-3816 PO (11:15)
[2016-08-30 11:40] VITALS: BP 138/85
--- NOTE | 2016-08-31 01:43 | OPERATIVE REPORT ---
DATE OF SERVICE: 08/30/2016 PREOPERATIVE DIAGNOSIS: Left knee chondromalacia of the patella. POSTOPERATIVE DIAGNOSES: 1. Left knee chondromalacia of the patella. 2. Left knee chondromalacia of the lateral tibial plateau. PROCEDURES: 1. Left knee arthroscopic chondroplasty of the patella. 2. Left knee arthroscopic chondroplasty of the lateral tibial plateau. SURGEON: Ponce Sandy MD ELECTRICIAN REFINERY: None. ANESTHESIA: General endotracheal, by Airam Bentley CRNA. TOURNIQUET TIME: Not applicable. ESTIMATED BLOOD LOSS: Minimal. DRAINS: None. COMPLICATIONS: None. POSTOPERATIVE PLAN: Routine arthroscopy protocol. The patient was transported to the recovery room awake and in stable condition. STATEMENT OF MEDICAL NECESSITY: The patient is a 35-year-old female with complaints of left anterior knee pain, catching and locking. She had patellofemoral crepitus and pain in patellar loading. She had failed to respond to conservative measures and due to functional impairment, the patient elected to proceed with surgical intervention. Examination under anesthesia revealed a range of motion of 0/0/135. Negative Ciarra. Negative anterior and posterior drawer. No varus or valgus laxity and a negative pivot shift. Arthroscopic findings of the patella demonstrated grade 2 flap superiorly and a 5 x 5 area of the trochlea demonstrated no gross chondral abnormalities, medial and lateral areas are clear. The medial compartments demonstrated grade 1 chondral softening of the tibial plateau with normal and stable chondral flaps. No meniscal pathology was noted. The ACL and PCL were intact. The lateral compartment demonstrated no meniscal pathology. However, there was grade 2 chondral flap within the central portion of the tibial plateau in a 10 x 10 area. PROCEDURE IN DETAIL: After risks and benefits of the procedure were discussed and questions were answered, informed consent was signed and placed on the chart. The operative site was confirmed in the preoperative holding area by the surgeon. The patient was then transported to the operating room. After an adequate level of general endotracheal anesthesia was obtained, a timeout was called to confirm the operative site. The left lower extremity was then prepped and draped in the usual sterile fashion. A 60 mL of fluid was used to insufflate the joint and an inferior lateral portal was placed through arthroscope and under direct visualization an inferomedial portal was created. The menisci and cruciates were carefully probe with the above findings noted. The unstable chondral flaps in the patella were debrided with a shaver back to a stable edge. The scope was then redirected into the lateral compartment where the unstable chondral flaps and the lateral tibial plateau were debrided with a shaver back to a stable edge. The knee was copiously irrigated. The portal sites were closed with 3-0 nylon in simple interrupted fashion. The knee was injected with Duramorph. Portal sites were infiltrated with plain Marcaine. A soft dressing was applied and the patient was transported to the recovery room in awake and stable condition. Job ID: [id number] DocumentID: [id number] Dictated Date: 08/30/2016 10:17:09 University Professor Date: 08/30/2016 20:40:08 Dictated By: PONCE SANDY MD
== END 2016-08-30 11:50 | disposition home or self-care (01) ==
LOC: SDC 08:30
PROVIDERS: ATTEND Orthopaedic Surgery
DX: M22.42 Chondromalacia patellae, left knee (principal); J45.909 Unspecified asthma, uncomplicated; F17.210 Nicotine dependence, cigarettes, uncomplicated
CPT/HCPCS: 84703

== ENCOUNTER → 2016-11-23 | Outpatient (CLI) | payer MEDICARE, MEDICAID ==
--- NOTE | 2016-11-23 18:29 | Diagnostic Imaging Report ---
PROCEDURE: MRI right joint lower extremity without contrast. TECHNIQUE: Multiplanar, multisequence non contrast-enhanced MRI of the right lower extremity was accomplished. INDICATION: Chronic right knee pain. Prior history of injury. FINDINGS: The cruciate ligaments are intact. There are some metallic artifacts at the level of the patella consistent with previous surgery. No meniscal tear is seen. The collateral ligaments are normal. There is no significant effusion. There is bone marrow edema at the medial tibial plateau which may be from reactive degenerative change or contusion. No other acute bony abnormality is seen. There are degenerative changes present. There is some hypertrophic spurring of all three compartments. IMPRESSION: There are degenerative changes present. No tear is seen. There is bone marrow edema at the medial tibial plateau. Dictated by: Dictated on workstation # [id number]
== END ==
LOC: RAD 16:50
PROVIDERS: ATTEND Orthopaedic Surgery
DX: M17.11 Unilateral primary osteoarthritis, right knee (principal); R60.0 Localized edema
CPT/HCPCS: 73721

== ENCOUNTER 2017-06-15 14:30 | Emergency (ER) | payer MEDICAID, MEDICARE ==
[~2017-06-15] VITALS: Ht 172.7 cm; Wt 107.0 kg
[~2017-06-15 14:30] MED LIST changes: +ACHD5005 PO; +HYDR-34 PO; -HYDR-3812 PO; -HYDR-3816 PO
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
[2017-06-15] MEDS ORDERED: TETANUS,DIPTH,PERTUSS P/F (BOOSTRIX) 0.5 ML VIAL IM ONE (15:45)
[2017-06-15] MEDS ORDERED: LIDOCAINE 1% INJ 20 ML (XYLOCAINE) VIAL INJ ONE (15:45)
[2017-06-15] MEDS ORDERED: LIDOCAINE 2% 20 ML (XYLOCAINE) VIAL ONE (15:49)
[2017-06-15] MEDS ORDERED: LIDOCAINE 2% 20 ML (XYLOCAINE) VIAL INJ ONE (16:00)
[2017-06-15 16:27] VITALS: BP 115/71
== END 2017-06-15 16:27 | disposition home or self-care (01) ==
LOC: EDUNIT# 14:30 → ER 14:32
DX: S61.412A Laceration without foreign body of left hand, initial encounter (principal); G43.909 Migraine, unspecified, not intractable, without status migrainosus; F43.10 Post-traumatic stress disorder, unspecified; F41.9 Anxiety disorder, unspecified; F32.9 Major depressive disorder, single episode, unspecified; J45.909 Unspecified asthma, uncomplicated; Z23 Encounter for immunization; Z87.820 Personal history of traumatic brain injury; Z87.828 Personal history of other (healed) physical injury and trauma; Z88.0 Allergy status to penicillin; Z88.1 Allergy status to other antibiotic agents; W26.8XXA Contact with other sharp object(s), not elsewhere classified, initial encounter
CPT/HCPCS: 90715

== ENCOUNTER → 2018-08-16 | Outpatient (CLI) | payer MEDICARE, MEDICAID ==
--- NOTE | 2018-08-16 13:18 | Diagnostic Imaging Report ---
PROCEDURE: US Non-ob pelvis comp/trans. INDICATION: Chronic pelvic pain TECHNIQUE: Multiple real time allen scale sonographic images were obtained of the pelvis transabdominally and transvaginally. CORRELATION STUDY: None FINDINGS: UTERUS: 7.3 x 3.3 x 3.4 cm. The uterus appears unremarkable. Cervical nabothian cysts are present. ENDOMETRIUM: 4 mm. The endometrium appearing unremarkable. RIGHT OVARY: Not visualized. LEFT OVARY: Not visualized. Ovaries are not visualized perhaps owing to position and/or obscuration by bowel gas. No significant free pelvic fluid. IMPRESSION: 1. Uterus and endometrium appearing unremarkable. 2. Nonvisualization of either ovary could be owing to perhaps position or obscuration by overlying bowel gas. Dictated by: Dictated on workstation # [id number]
== END ==
LOC: RAD 11:48
PROVIDERS: ATTEND Obstetrics & Gynecology
DX: G89.29 Other chronic pain (principal); R10.2 Pelvic and perineal pain
CPT/HCPCS: 76830; 76856

== ENCOUNTER 2019-06-17 23:38 | Emergency (ER) | payer MEDICARE, MEDICAID ==
[~2019-06-17] VITALS: Ht 172 cm; Wt 113.4 kg
[2019-06-18] MEDS ORDERED: KETOROLAC 30 MG/ML VIAL IVP ONE (00:15)
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
[2019-06-18 00:23] LABS: BASOPHILS # (AUTO) 0.1 10^3/uL (0.0-0.1); BASOPHILS % (AUTO) 1 % (0-10); EOSINOPHILS # (AUTO) 0.2 10^3/uL (0.0-0.3); EOSINOPHILS % (AUTO) 2 % (0-10); HEMATOCRIT 38 % (35-52); HEMOGLOBIN 12.6 G/DL (11.5-16.0); LYMPHOCYTES # (AUTO) 3.4 X 10^3 (1.0-4.0); LYMPHOCYTES % (AUTO) 43 % (12-44); MEAN CORPUSCULAR HEMOGLOBIN 30 PG (25-34); MEAN CORPUSCULAR HGB CONC 33 G/DL (32-36); MEAN CORPUSCULAR VOLUME 90 FL (80-99); MEAN PLATELET VOLUME 10.1 FL (7.4-10.4); MONOCYTES # (AUTO) 0.6 X 10^3 (0.0-1.0); MONOCYTES % (AUTO) 8 % (0-12); NEUTROPHILS # (AUTO) 3.7 X 10^3 (1.8-7.8); NEUTROPHILS % (AUTO) 47 % (42-75); PLATELET COUNT 176 10^3/uL (130-400); RED CELL DISTRIBUTION WIDTH 14.1 % (10.0-14.5); WHITE BLOOD COUNT 7.9 10^3/uL (4.3-11.0)
[2019-06-18 00:37] LABS: BILIRUBIN,URINE NEGATIVE (NEGATIVE); CLARITY,URINE SL CLOUDY; COLOR,URINE YELLOW; GLUCOSE, URINE (UA) NEGATIVE (NEGATIVE); KETONES,URINE NEGATIVE (NEGATIVE); LEUKOCYTE ESTERASE ,URINE NEGATIVE (NEGATIVE); NITRITE,URINE NEGATIVE (NEGATIVE); PROTEIN,URINE TRACE (NEGATIVE)
[2019-06-18 00:40] LABS: ALANINE AMINOTRANSFERASE 14 U/L (0-55); ALBUMIN 3.9 GM/DL (3.2-4.5); ALKALINE PHOSPHATASE 151 U/L (40-136); BILIRUBIN,TOTAL 0.1 MG/DL (0.1-1.0); BUN/CREATININE RATIO 18; CARBON DIOXIDE 15 MMOL/L (21-32); CHLORIDE 114 MMOL/L (98-107); GFR ESTIMATED > 60; GLUCOSE 114 MG/DL (70-105); POTASSIUM 4.1 MMOL/L (3.6-5.0); SODIUM 140 MMOL/L (135-145); TOTAL PROTEIN 6.5 GM/DL (6.4-8.2)
[2019-06-18 00:44] LABS: BACTERIA,URINE LARGE /HPF; WBC,URINE RARE /HPF
[2019-06-18] MEDS ORDERED: fentaNYL INJECTION 100 MCG/2 ML AMP IVP ONE (01:15)
[2019-06-18] MEDS ORDERED: IOHEXOL 350 MG/ML 100 ML (OMNIPAQUE 350) VIAL IV ONE (01:45)
[2019-06-18] MEDS ORDERED: NS 100 ML (IVPB) BAG IV ONE (01:45)
[2019-06-18] MEDS ORDERED: HYDROcodone/APAP 5 MG/325 MG (LORTAB) TAB PO ONE (03:00)
[2019-06-18] MEDS ORDERED: HYDR-4226 PO (03:34)
[2019-06-18] MEDS ORDERED: ONDA4TAB11 PO (03:34)
[2019-06-18 03:41] VITALS: BP 117/79
[2019-06-18] MEDS ORDERED: RX-HYDROCODONE/APAP 5/325 MG #4 TAB PK PO PRN (03:45)
--- NOTE | 2019-06-18 07:13 | Diagnostic Imaging Report ---
PROCEDURE: CT abdomen and pelvis with contrast. TECHNIQUE: Multiple contiguous axial images were obtained through the abdomen and pelvis after administration of intravenous contrast. Auto Exposure Controls were utilized during the CT exam to meet ALARA standards for radiation dose reduction. INDICATION: Right-sided abdominal pain COMPARISON: None FINDINGS: The lung bases are clear. Gallbladder, solid organs, vascular structures and bowel are unremarkable. The appendix is normal. There is no free air or free fluid. The uterus is intact. Distal ureters and urinary bladder are normal. There is no hernia. Osseous structures are age-appropriate. IMPRESSION: 1. No acute abnormality within the abdomen and pelvis 2. Normal appendix 3. No hydronephrosis or renal calculi. Dictated by: Dictated on workstation # [id number]
== END 2019-06-18 03:42 | disposition home or self-care (01) ==
LOC: EDUNIT# 23:38 → ER 23:41
DX: R10.31 Right lower quadrant pain (principal); F41.9 Anxiety disorder, unspecified; F32.9 Major depressive disorder, single episode, unspecified; F17.210 Nicotine dependence, cigarettes, uncomplicated; Z87.820 Personal history of traumatic brain injury; Z88.0 Allergy status to penicillin; Z88.1 Allergy status to other antibiotic agents
CPT/HCPCS: 36415; 74177; 80053; 81000; 84703; 85025; 87088

== ENCOUNTER → 2019-06-19 | Outpatient (CLI) | payer MEDICARE, MEDICAID ==
[~2019-06-19] MED LIST changes: +HYDR-4226 PO; +ONDA4TAB11 PO
--- NOTE | 2019-06-19 16:50 | Diagnostic Imaging Report ---
PROCEDURE: US Non-OB pelvis comp/trans. INDICATION: Right-sided pelvic pain. TECHNIQUE: Multiple real-time grayscale sonographic images were obtained of the pelvis transabdominally and endovaginally. CORRELATION STUDY: 08/16/2018. FINDINGS: UTERUS: 7.7 x 4.0 cm. The uterus appears unremarkable. ENDOMETRIUM: Approximately 5 mm. The endometrial stripe is not well defined and limited in assessment on this study. RIGHT OVARY: 3.4 x 1.8 x 2.0 cm. LEFT OVARY: 2.5 x 1.7 x 2.6 cm. The ovaries are not well visualized on this examination on either transabdominal or transvaginal imaging. A definitive abnormal mass is not demonstrated. Limited assessment of vascular flow. No significant free pelvic fluid. IMPRESSION: 1. Overall, somewhat compromised limited pelvic ultrasound evaluation. 2. Endometrium is not well defined. Overall thickness appears to be likely within normal limits for a premenopausal patient. 3. Limited visualization of the ovaries which are grossly unremarkable. Definitive vascular flow cannot be confirmed. Dictated by: Dictated on workstation # [id number]
== END ==
LOC: RAD 14:47
PROVIDERS: ATTEND Obstetrics & Gynecology
DX: R10.2 Pelvic and perineal pain (principal)
CPT/HCPCS: 76830; 76856

== ENCOUNTER → 2021-06-08 | Outpatient (CLI) | payer MEDICARE, MEDICAID ==
[~2021-06-08] MED LIST changes: +ESCI-2 PO; -ESCI10TA55 PO; +MIRT-69 PO; -MIRT30TA6 PO
--- NOTE | 2021-06-08 14:25 | Diagnostic Imaging Report ---
INDICATION: Routine screening. COMPARISON: No prior studies are available for comparison. This is a baseline study. TECHNIQUE: 2D and 3D bilateral screening mammography was performed with CAD. FINDINGS: Scattered fibroglandular densities are identified bilaterally. No mass or malignant-appearing microcalcifications are seen. The axillae are unremarkable. IMPRESSION: No mammographic features suspicious for malignancy are identified. ACR BI-RADS Category 1: Negative. Result letter will be mailed to the patient. Note: At least 10% of breast cancer is not imaged by mammography. Dictated by: Dictated on workstation # [id number]
== END ==
LOC: RAD 11:00
PROVIDERS: ATTEND Obstetrics & Gynecology
DX: Z12.31 Encounter for screening mammogram for malignant neoplasm of breast (principal)
CPT/HCPCS: 77063; 77067

== ENCOUNTER 2021-07-08 13:07 | Outpatient (CLI) | payer MEDICARE, MEDICAID ==
[2021-07-11] MEDS ORDERED: TRAM50TA3 PO (14:17)
[2021-07-11] MEDS ORDERED: FAMO20TA3 PO (14:17)
[2021-07-11] MEDS ORDERED: BUDE10.2 IH (14:17)
[2021-07-11] MEDS ORDERED: DICL100G13 TP (14:17)
[2021-07-11] MEDS ORDERED: DOXE50CA3 PO (14:17)
[2021-07-11] MEDS ORDERED: BUSP15TA60 PO (14:17)
[2021-07-11] MEDS ORDERED: FLUT9.9S NS (14:17)
[2021-07-11] MEDS ORDERED: DIPH1TAB PO (14:17)
[2021-07-11] MEDS ORDERED: CETI10TA17 PO (14:32)
[2021-07-11] MEDS ORDERED: DIPH25CA79 PO (14:32)
[2021-07-11] MEDS ORDERED: BENZ100C18 PO (14:32)
[2021-07-11] MEDS ORDERED: MTP25TSR PO (14:32)
[2021-07-11] MEDS ORDERED: MELA10CA2 PO (14:32)
[2021-07-11] MEDS ORDERED: ALBU0.63 IH (14:32)
[2021-07-11] MEDS ORDERED: ACET-168 PO (14:32)
[2021-07-11] MEDS ORDERED: ROPI2TAB6 PO (14:32)
[2021-07-11] MEDS ORDERED: MONT-40 PO (14:32)
[2021-07-11] MEDS ORDERED: IBUP-2185 PO (14:32)
[2021-07-11] MEDS ORDERED: GUAI100L56 PO (14:32)
== END 2021-07-11 15:06 | disposition home or self-care (01) ==
LOC: PREOP 13:07
PROVIDERS: ATTEND Orthopaedic Surgery
DX: Z01.818 Encounter for other preprocedural examination (principal)

== ENCOUNTER 2021-07-13 06:10 | Day surgery (SDC) | payer MEDICARE, MEDICAID ==
--- NOTE | 2021-07-09 11:21 | HISTORY AND PHYSICAL ---
DATE OF SERVICE: ADMISSION HISTORY AND PHYSICAL DATE OF ADMISSION: 07/13/2021 This will be for outpatient surgery on 07/13/2021 for right knee arthroscopy. HISTORY OF PRESENT ILLNESS: The patient is a 40-year-old female with an anterior right knee pain, catching, locking and swelling. She has undergone treatment with physical therapy as well as steroid injection without relief. She reports pain with kneeling, squatting and bent knee activities. Radiographs reveal moderate degenerative changes of her patellofemoral joint. She has a previous patellar fracture, which was treated with internal fixation. Due to functional impairment and failure to improve with conservative measures, the patient has elected to proceed with surgical intervention. REVIEW OF SYSTEMS: No chest pain, no shortness of breath, and no dysuria. PAST MEDICAL HISTORY: Closed head injury. PAST SURGICAL HISTORY: Bilateral knee arthroscopies, bilateral Achilles' lengthening, trachea. FAMILY HISTORY: Significant for hypertension and asthma. PRIMARY CARE PROVIDER: Dr. Hui. MEDICATIONS: Tramadol, hydroxyzine, carbamazepine, Depo-Provera, meloxicam, trazodone, ropinirole, metoprolol, melatonin, ibuprofen, buspirone, doxepin, montelukast, ProAir, Robitussin, topiramate, famotidine, Benadryl, and benzonatate. ALLERGIES: PENICILLIN and CIPRO. SOCIAL HISTORY: The patient smokes half a pack of cigarettes a day. Denies alcohol use. PHYSICAL EXAMINATION: GENERAL: The patient is well-developed, well-nourished, and in no acute distress. HEENT: Normocephalic and atraumatic. Pupils are equal, round and reactive to light. Oropharynx is clear. NECK: Supple and no lymphadenopathy. LUNGS: Clear to auscultation bilaterally. HEART: Regular rate and rhythm. ABDOMEN: Soft, nontender, and nondistended. EXTREMITIES: Right knee demonstrates patellofemoral crepitus and pain with patellar loading. She has a moderate effusion noted. She has no joint line tenderness. Range of motion is 0/0/140. IMPRESSION: Right knee chondromalacia of the patella. PLAN: Right knee arthroscopy with chondroplasty and partial meniscectomy. The risks, benefits, options, ramifications, and recovery have been discussed at length with the patient. She understands and wishes to proceed. This will be for outpatient surgery on 07/13/2021. Job ID: [id number] DocumentID: [id number] Dictated Date: 07/08/2021 09:55:15 Black And White Printer Operator Date: 07/08/2021 10:43:34 Dictated By: PONCE SANDY MD
[2021-07-13] VITALS (10 sets, daily range): BP systolic 84–113; BP diastolic 55–75
[~2021-07-13] VITALS: Ht 175.3 cm; Wt 113.7 kg
[~2021-07-13 06:10] MED LIST changes: +ACET-168 PO; +ALBU0.63 IH; +BENZ100C18 PO; +BUDE10.2 IH; +BUSP15TA60 PO; +CETI10TA17 PO; +DICL100G13 TP; +DIPH1TAB PO; +DIPH25CA79 PO; +DOXE50CA3 PO; +FAMO20TA3 PO; +FLUT9.9S NS; +GUAI100L56 PO; +IBUP-2185 PO; +MELA10CA2 PO; +MONT-40 PO; +MTP25TSR PO; +ROPI2TAB6 PO; +TRAM50TA3 PO
[2021-07-13] MEDS ORDERED: CLINDAMYCIN 600 MG/50 ML IVPB 50 ML IV ONE (06:15)
[2021-07-13] MEDS ORDERED: LACTATED RINGERS 1,000 ML IV PRN (06:15)
[2021-07-13] MEDS ORDERED: morphine PF (DURAMORPH) 10 MG/10 ML AMP ONE (07:21)
[2021-07-13] MEDS ORDERED: BUPIVACAINE 0.25% 10 ML (SENSORCAINE) VIAL ONE ×2 (07:21→07:22)
[2021-07-13] MEDS ORDERED: fentaNYL INJ 100 MCG/2 ML AMP ONE (07:27)
[2021-07-13] MEDS ORDERED: MIDAZOLAM 2 MG/2 ML (VERSED) VIAL ONE (07:27)
--- NOTE | 2021-07-13 07:31 | Progress Note-Pre Operative ---
Pre-Operative Progress Note H&P Reviewed The H&P was reviewed, patient examined and no changes noted. Date Seen by Provider: Jul 13, 2021 Time Seen by Provider: 07:22 Date H&P Reviewed: Jul 13, 2021 Time H&P Reviewed: 07:11 Pre-Operative Diagnosis: right knee medial meniscus tear and chondromalacia PONCE SANDY MD Jul 13, 2021 07:31
--- NOTE | 2021-07-13 07:32 | Progress Note-Post Operative ---
Post-Operative Progess Note Surgeon (s)/Bull Fiddle Player (s) Surgeon PONCE SANDY MD Bull Fiddle Player: none Pre-Operative Diagnosis right knee medial meniscus tear and chondromalacia Post-Operative Diagnosis right knee lateral meniscus tear and chondromalacia of the lateral tibial plateau, patella and trochlea Procedure & Operative Findings Date of Procedure 07/13/21 Procedure Performed/Findings right knee arthroscopic partial lateral meniscectomy and chondroplasty of the lateral tibial plateau, patella and trochlea Anesthesia Type GETA Estimated Blood Loss Estimated blood loss (mL): minimal Specimens/Packing Specimens Removed none Packing: none PONCE SANDY MD Jul 13, 2021 07:32
[2021-07-13] MEDS ORDERED: SEVOFLURANE (ULTANE) 15 ML INHAL SOLN ONE (08:19)
[2021-07-13] MEDS ORDERED: LIDOCAINE PF 2% 5 ML (XYLOCAINE) VIAL ONE (08:20)
[2021-07-13] MEDS ORDERED: proPOfol 200 MG/20 ML (DIPRIVAN) VIAL IV ONE (08:20)
[2021-07-13] MEDS ORDERED: ONDANSETRON 4 MG/2 ML (SDV) Z0FRAN ONE (08:20)
[2021-07-13] MEDS ORDERED: ONDANSETRON 4 MG/2 ML (SDV) Z0FRAN IVP PRN (09:00)
[2021-07-13] MEDS ORDERED: morphine INJ 10 MG/ML 1ML (SYR OR VIAL) IVP ONE (09:00)
--- NOTE | 2021-07-13 10:50 | OPERATIVE REPORT ---
DATE OF SERVICE: 07/13/2021 PREOPERATIVE DIAGNOSES: 1. Right knee chondromalacia of the trochlea. 2. Right knee chondromalacia of the patella. 3. Right knee medial meniscus tear. POSTOPERATIVE DIAGNOSES: 1. Right knee lateral meniscus tear. 2. Right knee chondromalacia of lateral tibial plateau. 3. Right knee chondromalacia of the trochlea. 4. Right knee chondromalacia of the patella. PROCEDURES: 1. Right knee arthroscopic partial medial meniscectomy. 2. Right knee arthroscopic chondroplasty of the lateral tibial plateau. 3. Right knee arthroscopic chondroplasty of the trochlea. 4. Right knee arthroscopic chondroplasty of the patella. SURGEON: Beny Sandy MD MECHANICAL SERVICE REPRESENTATIVE: None. ANESTHESIA: General endotracheal by Aide Mosley CRNA. TOURNIQUET TIME: Not applicable. ESTIMATED BLOOD LOSS: Minimal. DRAINS: None. COMPLICATIONS: None. POSTOPERATIVE PLAN: Routine arthroscopy protocol. The patient was transferred to the recovery room awake and in stable condition. STATEMENT OF MEDICAL NECESSITY: The patient is a 40-year-old female who previously underwent internal fixation for a patellar fracture, who has had longstanding anterior knee pain, catching and locking. Radiographs revealed advanced joint space narrowing of the patellofemoral joint space. The patient was counseled regarding treatment options and she complained of mechanical symptoms with large effusion. She has undergone treatment with injections without relief. She understood that an arthroscopy could help with her mechanical symptoms, but would not alleviate her arthritic symptoms and the patient elected to proceed with surgical intervention. DESCRIPTION OF PROCEDURE: After risks and benefits of procedure were discussed and questions were answered, informed consent was signed and placed on chart. The operative site was confirmed in the preoperative holding area initialed by the surgeon. The patient was then transferred to the operating room and after adequate levels of general endotracheal anesthetic were obtained, a timeout was called, confirming the operative site. The right lower extremity was prepped and draped in the usual sterile fashion. Range of motion was approximately 0/0/130 with negative Ciarra, negative anterior and posterior drawer. No varus valgus laxity, negative pivot shift. Knee joint was injected with 60 mL fluid and standard inferolateral portal was placed for the arthroscope and under direct visualization, inferior medial portal was created. A diagnostic arthroscopy was carried out. Grade IV chondral loss was noted throughout the trochlea. No grooves were noted from hardware penetration, but there was diffuse chondral loss, at the periphery there were grade III chondral flaps. The patella demonstrated diffuse grade IV chondral loss centrally in a 20 x 20 area. There was penetration of approximately one screw thread of one of her patellar fixation screws, but this was minimal and felt to be acceptable. There were grade III chondral flaps at the periphery, the grade IV lesion on the patella with medial and lateral gutters were clear. The ACL and PCL were intact. Medial compartment demonstrated no significant meniscal or chondral pathology. The lateral compartment demonstrated a tear of the posterior horn and body, lateral meniscus involving approximately 20% of the posterior horn. In addition, there was grade IV chondral flap central portion of the tibial plateau in an 8 x 8 area. The unstable chondral flaps on the patella and trochlea were debrided with shaver back to a stable edge. Scope was redirected into the lateral compartment. The unstable chondral flaps in lateral tibial plateau were debrided with a shaver back to a stable edge and the lateral meniscus tear was debrided with a biter and shaver back to a stable edge. It was carefully probed with no further tearing or instability noted. The screw thread was carefully probed and found to be stable. The knee joint was copiously irrigated. The portal sites were closed with 4-0 nylon in septic fashion. Knee was injected with Duramorph. Port sites were infiltrated with plain Marcaine. A soft dressing was applied. The patient was transferred to the recovery room awake and in stable condition. Job ID: [id number] DocumentID: [id number] Dictated Date: 07/13/2021 08:28:08 Billing Machine Operator Date: 07/13/2021 10:49:17 Dictated By: BENY SANDY MD
--- NOTE | 2021-07-14 09:07 | Anesthesia-General Post-Op ---
General Patient Condition Mental Status/LOC: Same as Preop Cardiovascular: Satisfactory Nausea/Vomiting: Absent Respiratory: Satisfactory Pain: Controlled Complications: Absent Post Op Complications Complications None Follow Up Care/Instructions Patient Instructions None needed. Anesthesia/Patient Condition Patient Condition Patient is doing well, no complaints, stable vital signs, no apparent adverse anesthesia problems. No complications reported per nursing. MICKY CASAREZ CRNA Jul 14, 2021 09:07
== END 2021-07-13 10:20 ==
LOC: SDC 06:10
PROVIDERS: ATTEND Orthopaedic Surgery
DX: S83.241A Other tear of medial meniscus, current injury, right knee, initial encounter (principal); S83.281A Other tear of lateral meniscus, current injury, right knee, initial encounter; M94.261 Chondromalacia, right knee
CPT/HCPCS: 84703; 87081